=== PATIENT | male | born 1975 | race Caucasian/White ===

== ENCOUNTER 2020-01-30 12:35 | Outpatient (CLI) | payer BC, SELFPAY ==
--- NOTE | 2020-02-02 09:46 | SLEEP_ITS ---
Home Sleep Study DATE OF STUDY: 01/30/2020 ORDERING PHYSICIAN: Jeannette Reilly MD. REASON FOR THIS STUDY: Hypersomnia. HISTORY: This patient is a 44-year-old male, 5 feet 8 inches tall, weighing 180 pounds with a body mass index of 27.3. He has excessive daytime sleepiness, can fall asleep sitting down in a chair any time of day. He snores loudly and his and children tell him to turn over or wake him up to get him to stop. He is always snoring loudly and it constantly bothers other people. He constantly awakens from sleep feeling short of breath and occasionally awakens from sleep with heartburn or belching. He occasionally has trouble sleeping with a cold. He occasionally gasps for breath at night. He frequently has breathing problems witnessed by others. He occasionally sweats excessively at night. He rarely notices his heart pounding or beating irregularly at night. He constantly is falling asleep in the day, constantly falls asleep involuntarily, rarely while driving. He does not have loss of muscle tone with strong emotion. 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 He does not feel paralyzed on waking or falling asleep. He rarely has vivid dreamlike scenes upon awakening or falling asleep. He is not afraid to go to sleep. He rarely has nightmares. He does not remembers dreams. He occasionally has racing thoughts. He rarely feels sad, depressed, occasionally feels anxious. He never has muscular tension or notices parts of his body jerking. He occasionally kicks at night. He does not have crawly achy feelings in his legs, does not have leg pain at night, does not have morning jaw pain and does not grind his teeth during sleep. He occasionally is bothered by pain during the day. He is never bothered by pain at night. He occasionally wakes up feeling stiff in the morning with sore achy muscles. He frequently wakes up with pain in the neck and spine. He has headaches, stomach problems, and takes antacids regularly. He estimates that he has 4 to 5 hours of sleep on an average night. The bedtime is variable. It takes up to 30 minutes for him to fall asleep and he typically wakes 1 or 2 times at night. When this happens, he will stay in bed. Weekend schedule also varies as he may have to work on weekends. He does take naps. A short nap is not refreshing. He is tired in the morning for 2 hours or longer. He feels better in the afternoon and in the morning. MEDICAL COMORBIDITIES: Acid reflux, arthritis, anger and mood disorder with depression, history of tracheostomy. MEDICATIONS: Venlafaxine 75 mg a day for depression. HABITS: Never smoked tobacco. Caffeine, 3 to 4 cans a day. Alcohol, 2 per week. No recreational drugs. DESCRIPTION OF THE STUDY: On the [place] Sleepiness Scale, the score is 22. This was conducted as an unattended type 3 portable home sleep test using 4 channel monitoring with respiratory effort channel, snoring channel, oxygen saturation channel, and heart rate channel. This study was scored using [facility] guidelines. Duration of the study was 8 hours 48 minutes. The apnea-hypopnea index is elevated at 14. The respiratory disturbance index is 17.2. Oxygen desaturation index is 8.2, which is elevated. Lowest desaturation is 86%. He had 61 apneas. 52% of the apneas or 32 were central, 46% of the apneas or 28 were obstructive and 1 apnea or 2% was mixed. He had 62 hypopneas, 2662 flow limited breaths without snoring, 815 snoring events, 72 desaturations with 1 minute spent below 88%. Heart rate was 69 to 121. IMPRESSION: This study shows evidence of at least mild obstructive sleep apnea syndrome G47.33 with an AHI of 14, minimum saturation of 86%, frequent loud s
== END 2020-01-30 12:36 | disposition home or self-care (01) ==
LOC: ANHCSM 12:35
PROVIDERS: PCP Family Medicine; Visit Provider Family Medicine
DX: G47.33 Obstructive sleep apnea (adult) (pediatric) (principal); F32.9 Major depressive disorder, single episode, unspecified
CPT/HCPCS: 95806

== ENCOUNTER 2020-05-14 00:50 | Outpatient (CLI) | payer BC, SELFPAY ==
[2020-05-14 20:51] LABS: SARS-CoV-2 RNA PCR Negative
== END 2020-05-14 00:51 | disposition home or self-care (01) ==
LOC: ANHCOVIDDT 00:51
PROVIDERS: PCP Family Medicine; Visit Provider Orthopaedic Surgery
DX: Z01.812 Encounter for preprocedural laboratory examination (principal); Z20.828 Contact with and (suspected) exposure to other viral communicable diseases
CPT/HCPCS: 87635; C9803; U0003

== ENCOUNTER 2020-05-16 01:19 | Day surgery (SDC) | payer BC, SELFPAY ==
[2020-05-02 11:18] VITALS: BMI 27.3
--- NOTE | 2020-05-08 15:40 | PM.IMHP ---
H&P: HPI History of Present Illness Date/Time: 05/08/20 15:40 Chief complaint: right carpal and cubital tunnel syndrome Narrative: Gurinder Diamond is a 44 year old male With right elbow and wrist pain, numbness and tingling. EMG nerve conduction study shows ulnar nerve compression at the elbow and median nerve compression at the wrist. He has failed conservative treatment and presents now for operative treatment. Review of Systems Constitutional: Constitutional: Denies fever(s) Eyes: Eyes: Denies blurry vision ENT: Reports Normal hearing present Cardiovascular: Cardiovascular: Denies chest pain and Denies dyspnea Respiratory: Respiratory: Denies dyspnea and Denies wheezing Gastrointestinal: Gastrointestinal: Denies abdominal pain Genitourinary: Genitourinary: Denies urinary urgency Musculoskeletal: Musculoskeletal: Reports as per HPI and Denies numbness Integumentary/Breasts: Skin/Breast: Denies changing lesions and Denies sores Neurologic: Reports Normal hearing present, Denies behavioral changes, Denies confusion, Denies numbness and Denies convulsions Psychiatric: Psychiatric: Denies behavioral changes, Denies confusion and Denies hallucinations Endocrine: Endocrine: Denies heat intolerance Hematologic/Lymphatic: Hematologic/Lymphatic: Denies easy bleeding Allergic/Immunologic: Allergic/Immunologic: Denies wheezing PMFSH Past Medical History Medical History Carpal tunnel syndrome of right wrist Cellulitis of right elbow Gastroesophageal reflux disease Herpes zoster without complication Irritability and anger Olecranon bursitis of right elbow Right elbow pain Screening for depression Seasonal allergies Ulnar nerve injury Surgical History Surgical History History of appendectomy 1989 Status post emergency tracheotomy for assistance in breathing 1991 Family History Family History Father Patient's father is in good health Mother Family history of diabetes mellitus in first degree relative Family history of coronary artery disease Other Arthritis Hypertension Malignant neoplasm Social History Social History Smoking status: Never smoker Alcohol intake: current Drinks per week: 1 Substance use: never 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 Gender identity (if verbalized by the patient): Male Spiritual care concerns: No Meds Home Medications and Allergies Home Medications Medication Instructions Recorded Confirmed Type famotidine 40 mg tablet 40 mg PO Q12H #180 tablet 01/11/20 05/06/20 Rx venlafaxine 37.5 mg tablet 37.5 mg PO DAILY #90 tablet 03/19/20 05/06/20 Rx venlafaxine 75 mg tablet,extended 75 mg PO DAILY #90 tablet 03/19/20 05/06/20 Rx release 24 hr sumatriptan succinate 50 mg tablet See Rx Instructions PO .COMPLEX #7 05/06/20 05/06/20 Rx tablet Allergies Allergy/AdvReac Type Severity Reaction Status Date / Time esomeprazole Allergy Unknown DIARRHEA/GI Verified 05/06/20 11:17 UPSET Sulfa (Sulfonamide Allergy Unknown Hives Verified 05/06/20 11:17 Antibiotics) Exam Const: General: cooperative, healthy appearing, no acute distress, well developed and alert; No confusion Orientation/consciousness: No confusion HENMT: Head: normal to inspection, normocephalic and atraumatic Eyes: Conjunctivae: conjunctivae normal Sclera: sclerae normal Neck: Neck: supple and nontender Chest: Chest palpation & inspection: normal inspection of the chest Resp: Effort & Inspection: normal respiratory effort and no audible wheezes Cardio: Rate: regular rate Rhythm: regular rhythm : General: Yes deferred Skin: General skin exam: no rashes or lesions noted Neuro: General: No confusion Motor exam
--- NOTE | 2020-05-15 11:22 | WPDANESEPPF ---
Anes - Initial Pre Proc Eval Procedure: Operation Date: 05/16/20 07:30 Proposed Procedures p Right Carpal Tunnel Release, Right Cubital Tunnel Release - Osvaldo Still MD Date/Time: 05/15/20 11:22 Surgeon: Osvaldo Still MD Pre Op Diagnosis: right carpal and cubital tunnel syndrome Patient Data Age: 44 Gender: M Height: 1.75 m Weight: 83.91 kg Allergies Allergy/AdvReac Type Severity Reaction Status Date / Time esomeprazole Allergy Unknown DIARRHEA/GI Verified 05/06/20 11:17 UPSET Sulfa (Sulfonamide Allergy Unknown Hives Verified 05/06/20 11:17 Antibiotics) Home Medications Medication Instructions Recorded Confirmed Type famotidine 40 mg tablet 40 mg PO Q12H #180 tablet 01/11/20 05/06/20 Rx venlafaxine 37.5 mg tablet 37.5 mg PO DAILY #90 tablet 03/19/20 05/06/20 Rx sumatriptan succinate 50 mg tablet See Rx Instructions PO .COMPLEX #7 05/06/20 05/06/20 Rx tablet venlafaxine 75 mg tablet,extended 75 mg PO DAILY #90 tablet 05/13/20 Rx release 24 hr PMFSH Past Medical History Medical History (Updated 05/15/20 @ 11:24 by Prince Garay MD) Carpal tunnel syndrome of right wrist Cellulitis of right elbow Cubital tunnel syndrome on right Gastroesophageal reflux disease Herpes zoster without complication Irritability and anger Olecranon bursitis of right elbow ADAM (obstructive sleep apnea) Overweight (BMI 25.0-29.9) Right elbow pain Screening for depression Seasonal allergies Ulnar nerve injury Surgical History Surgical History History of appendectomy 1989 Status post emergency tracheotomy for assistance in breathing 1991 Family History Family History Father Patient's father is in good health Mother Family history of diabetes mellitus in first degree relative Family history of coronary artery disease Other Arthritis Hypertension Malignant neoplasm Social History Social History Smoking status: Never smoker Alcohol intake: current Drinks per week: 1 Substance use: never 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 Questions were solicited and answers provided to the satisfaction of the patient/family/POA.
[2020-05-16] VITALS (8 sets, daily range): BP systolic 113–134; BP diastolic 80–90; PULSE 75–97; RESP 10–16; TEMP 36.3–36.8; O2SAT 93–100
[2020-05-16] MEDS: ACETAMINOPHEN 500 MG TABLET 1000 MG PO (06:36)
[2020-05-16] MEDS: KETOROLAC 15 MG/ML VIAL (*BKC) IV PUSH (06:36)
[2020-05-16] MEDS: LACTATED RINGERS 1,000 ML 30 ML IV CONT (06:37)
--- NOTE | 2020-05-16 06:47 | WPDANESEPPF ---
Anes - Initial Pre Proc Eval Procedure: Operation Date: 05/16/20 07:30 Proposed Procedures p Right Carpal Tunnel Release, Right Cubital Tunnel Release - Osvaldo Still MD Date/Time: 05/16/20 06:47 Surgeon: Osvalod Still MD Pre Op Diagnosis: right carpal and cubital tunnel syndrome Patient Data Age: 44 Gender: M Height: 5 ft 9 in Weight: 83.91 kg Allergies Allergy/AdvReac Type Severity Reaction Status Date / Time esomeprazole Allergy Unknown DIARRHEA/GI Verified 05/06/20 11:17 UPSET Sulfa (Sulfonamide Allergy Unknown Hives Verified 05/06/20 11:17 Antibiotics) Home Medications Medication Instructions Recorded Confirmed Type famotidine 40 mg tablet 40 mg PO Q12H #180 tablet 01/11/20 05/06/20 Rx venlafaxine 37.5 mg tablet 37.5 mg PO DAILY #90 tablet 03/19/20 05/06/20 Rx sumatriptan succinate 50 mg tablet See Rx Instructions PO .COMPLEX #7 05/06/20 05/06/20 Rx tablet venlafaxine 75 mg tablet,extended 75 mg PO DAILY #90 tablet 05/13/20 Rx release 24 hr Patient hx anesthesia problems: none Family hx anesthesia problems: none PMFSH Past Medical History Medical History Carpal tunnel syndrome of right wrist Cellulitis of right elbow Cubital tunnel syndrome on right Gastroesophageal reflux disease Herpes zoster without complication Irritability and anger Olecranon bursitis of right elbow ADAM (obstructive sleep apnea) Overweight (BMI 25.0-29.9) Right elbow pain Screening for depression Seasonal allergies Ulnar nerve injury Surgical History Surgical History History of appendectomy 1989 Status post emergency tracheotomy for assistance in breathing 1991 Family History Family History Father Patient's father is in good health Mother Family history of diabetes mellitus in first degree relative Family history of coronary artery disease Other Arthritis Hypertension Malignant neoplasm Social History Social History Smoking status: Never smoker Alcohol intake: current Drinks per week: 1 Substance use: never 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 Questions were solicited and answers provided to the satisfaction of the patient/family/POA.
--- NOTE | 2020-05-16 07:00 | WPDHPUPDATE1 ---
History and Physical Update Update Date/Time: 05/16/20 07:00 History and Physical has been reviewed, including an updated exam of the patient. There are NO changes in the patient's condition. Covid test negative. Risks, benefits, and alternatives have been discussed and questions answered. Patient agrees to proceed with procedure.
[2020-05-16] MEDS: ceFAZolin 2 GM/D5W 50 ML 2 GM/50 ML BAG IVPB (07:23)
[2020-05-16] MEDS: BUPIVACAINE HCL 0.5% PF 30 ML VIAL INFILTRATE (07:48)
--- NOTE | 2020-05-16 08:35 | P.OP_ITS ---
Procedure Note - Detailed Date of procedure: 05/16/20 Pre-op diagnosis: right carpal and cubital tunnel syndrome Post-op diagnosis: same Procedure performed: Right cubital tunnel release, right carpal tunnel release Description of procedure: Surgeon: Cheko Assist: Waxing Machine Operator Complications: None EBL: Minimal Operative Indications: The patient has history, exam findings, and electrodiagnostic findings consistent with cubital tunnel syndrome and carpal tunnel syndrome. Conservative treatment with bracing/ splinting, activity modifications, medication, ergonomics, injections has failed. Symptoms are daily and affect ability to use hand. The patient desires operative treatment. Procedure: After informed consent was given, the operative extremity was marked in the preoperative holding area. Intravenous antibiotics were given. The patient was taken to the operating room and underwent general anesthesia by the anesthesia team. A time-out was performed confirming patient, procedure, and operative site. Local infiltrate at the carpal tunnel and cubital tunnel was done with 0.5% marcaine. Prepping and draping was done using chloraprep skin solution with usual surgical sterile technique. Anatomic landmarks marked on skin. Hand was exsanguinated and arm tourniquet inflated to 225mmHg. right elbow cubital tunnel was addressed 1st. Incision with 15 blade knife made over the cubital tunnel. Careful dissection carried down through the subcutaneous tissue. Hemostasis controlled with electrocautery. Fascia overlying the cubital tunnel was then incised in line with the skin incision. The ulnar nerve was identified deep to the fascia and was protected. The fascia was then released proximally. There was noted to be tight fascia attached to the medial humerus with impingement on the nerve. This fascia was carefully released proximally into the muscle. Under direct visualization, the fascia was then released distally to expose the ulnar nerve. Released distally was taken to the ulnar nerve branch. Wound was thoroughly irrigated antibiotic solution. Subcutaneous tissue closed with 3 0 Monocryl interrupted suture and skin approximated with running 3 0 Monocryl subcuticular stitch. Sterile dressing applied. Right carpal tunnel then addressed. Incision was made with #15 blade knife in skin crease on volar palm. Hemostasis was achieved with electrocautery. Careful dissection was carried down to the transverse carpal ligament. Retractors were placed. Ligament overlying median nerve was incised in line with skin incision using kenaitze blade. Proximal and distal release was done wi th metzenbaum scissors under direct visualization. Mosquito clamp was placed deep to ligament to protect nerve during release. The nerve was inspected and noted to be intact with mild flattening. Tendons had good excursion. The tourniquet was then released and pressure held. Bleeding points were coagulated with bovie cautery. The wound was thoroughly irrigated with antibiotic solution. The skin was closed with 4-0 nylon interrupted suture. A sterile dressing was applied. Good capillary refill in the fingers and thumb was noted. The patient was transported to the recovery room in stable condition. All sponge, needle, instrument counts were correct at the end of the case. Implants: none Anesthesia: GLMA Surgeon: Osvaldo Still MD Angiography Technologist: 1st operator assistant i cementing Estimated blood loss (mL): 2 Tourniquet time (min): 25 Drains: No Packing: No Pathology: none sent Complications: None Condition: stable Disposition: PACU
[2020-05-16] MEDS: IBUPROFEN 400 MG TABLET 800 MG PO (09:37)
== END 2020-05-16 10:24 | disposition home or self-care (01) ==
PROVIDERS: Visit Provider Orthopaedic Surgery
PROC: (CPT 64721; principal; 2020-05-16 07:30)
DX: G56.01 Carpal tunnel syndrome, right upper limb (principal); G56.21 Lesion of ulnar nerve, right upper limb; K21.9 Gastro-esophageal reflux disease without esophagitis; G47.33 Obstructive sleep apnea (adult) (pediatric)
CPT/HCPCS: 64721; 64718; A9270; J0690; J1100; J1885; J2250; J2405; J2704; J3010; J7120

== ENCOUNTER 2021-05-08 08:54 | Observation (INO) | payer BC, SELFPAY ==
[2021-05-08] VITALS (13 sets, daily range): BP systolic 111–134; BP diastolic 70–97; PULSE 67–98; RESP 14–18; TEMP 35.9–36.8; O2SAT 93–99
--- NOTE | ~2021-05-08 | XR_ITS ---
EXAMINATION: XR abdomen/kub 1V EXAM DATE: 05/08/2021 11:11 INDICATION: Right stone TECHNIQUE: Frontal projection of the upper abdomen, frontal projection lower abdomen/pelvis for inter pretation. Correlation is made to CT same date. FINDINGS: 5 mm right UPJ stone identified, indicated. Can't identify the smaller left nephrolithiasi s. Nonobstructive bowel gas pattern. There are no osseous abnormalities identified. IMPRESSION: Right UPJ stone identified. Reviewed, dictated and finalized at location B. IMPRESSION: Right UPJ stone identified.
--- NOTE | ~2021-05-08 | XR_ITS ---
XR abdomen/kub 1V 05/09/2021 17:49 Indication: Abdomen pain Procedure: KUB Comparison: 05/08/2021 Findings: The UPJ stones on the right seen on prior CT are not visualized by x-ray. Bowel gas pattern is nonobstructive. There is a punctate nonobstructing left renal stone. No acute osseous abnormality . Impression: 1: Left nephrolithiasis. Reviewed, dictated and finalized at location A. Impression: 1: Left nephrolithiasis.
--- NOTE | ~2021-05-08 | CT_ITS ---
EXAMINATION: CT abdomen pelvis wo con EXAM DATE: 05/08/2021 09:27 INDICATION: Hematuria. Painful urination. TECHNIQUE: Spiral CT of the abdomen and pelvis was performed without contrast. Axial, coronal and sag ittal images were reviewed. The dose-length product (DLP) for this examination was 453.72 mGy-cm. T he exposure was tailored according to patient size (auto mA exposure control), and iterative reconstr uction (ASIR) was used as additional dose reduction technique. There is no prior study for compariso n. FINDINGS: There is a 5 mm on the right ureteropelvic junction. No hydronephrosis at present. No other right nephrolithiasis. There are regions of right renal cortical scarring. There is 2 mm left mid ca lyceal stone. The prostate is unremarkable. The bladder is unremarkable. The liver, spleen, adrena l glands and pancreas are unremarkable. Gallbladder is unremarkable. No biliary obstruction. There is no retroperitoneal or pelvic lymphadenopathy. There are no findings to suggest appendicitis. The stomach and small bowel are unremarkable. There is expected amount of colonic stool. No free intraperitoneal gas. The heart is normal in size. T here are no pericardial or pleural effusions. The lung bases are unremarkable. There are no osteobl astic or osteolytic lesions identified. IMPRESSION: 1. Right UPJ 5 mm stone. No hydronephrosis at present. 2. Nonobstructing small left calyceal stone. Reviewed, dictated and finalized at location B.
--- NOTE | ~2021-05-08 | CT_ITS ---
EXAMINATION: CT abdomen wo con DATE: 05/09/2021 17:40 INDICATION: Abdomen pain TECHNIQUE: Computed tomography (CT) of the abdomen and pelvis was performed without intravenous contr ast. The dose-length product was 345.57 mGy-cm. Automated exposure control and iterative reconstructi on technique were employed. COMPARISON: CT dated 05/08/2021 FINDINGS: There is gynecomastia. Left lower lobe airspace consolidation. Patchy bibasilar groundglass infiltrates. No significant pleural or pericardial effusion. Heart size is normal. Moderate size hia genoveva hernia. There are at least 2 stones at the right UPJ with mild hydronephrosis. There is right per inephric stranding, likely from pyelosinus extravasation. There is a small 2-3 mm nonobstructing left renal stone. The liver, spleen, pancreas, adrenal glands are unremarkable. Nonobstructive bowel gas pattern. No fr ee air or free fluid. IMPRESSION: 1. Right UPJ stones measuring up to 6 mm with mild hydronephrosis and perinephric stranding, suspicio us for pyelosinus extravasation. 2: Bibasilar groundglass opacities and airspace consolidation, suspicious for pneumonia. 3: Nonobstructing left nephrolithiasis. Reviewed, dictated and finalized at location A. IMPRESSION: 1. Right UPJ stones measuring up to 6 mm with mild hydronephrosis and perinephr ic stranding, suspicious for pyelosinus extravasation. 2: Bibasilar groundglass opacities and airspace consolidation, suspicious for p neumonia. 3: Nonobstructing left nephrolithiasis.
--- NOTE | ~2021-05-08 | CT_ITS ---
EXAMINATION: CT pelvis wo con DATE: 05/09/2021 17:55 INDICATION: Right groin pain TECHNIQUE: Computed tomography (CT) of the pelvis was performed without intravenous contrast. The dos e-length product was 241.71 mGy-cm. Automated exposure control and iterative reconstruction technique were employed. COMPARISON: CT dated 05/08/2021 FINDINGS: Nonobstructive bowel gas pattern. No evidence for inguinal hernia. No significant vascular abnormality. No lymphadenopathy. No free air or free fluid. No acute bone or joint abnormality. IMPRESSION: 1. No significant abnormality of the pelvis. No findings to account for patient's symptoms. Reviewed, dictated and finalized at location A. IMPRESSION: 1. No significant abnormality of the pelvis. No findings to account for patient 's symptoms.
[2021-05-08 09:31] LABS: Basophils Absolute Auto 0.1 K/mm3 (0.0-0.1); Basophils Percent Auto 0.7 % (0.2-1.2); Eosinophils Absolute Auto 0.1 K/mm3 (0-0.3); Eosinophils Percent Auto 1.9 % (0-4.4); Hematocrit 43.8 % (42.0-52.0); Hemoglobin 14.7 g/dL (14.0-18.0); Immature Granulocyte Absolute 0.02 K/mm3 (0.00-0.031); Immature Granulocyte Percent A 0.3 % (0-0.5); Lymphocytes Absolute Auto 1.71 K/mm3 (0.9-3.2); Lymphocytes Percent Auto 25.6 % (18.3-44.2); Mean Corpuscular HGB Conc 33.6 g/dl (32-36); Mean Corpuscular Hemoglobin 30.5 pg (26-34); Mean Corpuscular Volume 90.9 fl (80-100); Mean Platelet Volume 9.2 fl (7.4-10.4); Monocytes Absolute Auto 0.6 K/mm3 (0.1-0.6); Monocytes Percent Auto 8.4 % (2.6-8.5); Neutrophils Absolute Auto 4.2 K/mm3 (1.3-6.7); Neutrophils Percent Auto 63.1 % (45.5-73.1); Platelet Count Result 379 k/mm3 (150-375); Red Blood Count 4.82 M/mm3 (4.6-6.20); Red Cell Distribution Width 12.3 % (11.5-14.5); White Blood Count 6.7 K/mm3 (4.5-10.0)
[2021-05-08 09:43] LABS: Add Urine Microscopic? YES; Appearance Urine Cloudy (Clear); Bilirubin Urine Negative (Negative); Blood Urine 3+ (Negative); Color Urine Straw (Yellow); Glucose Urine UA Negative (Negative); Ketones Urine Negative (Negative); Leukocyte Esterase Ur Negative LEU/UL (Negative); Nitrate Urine Negative (Negative); Protein Urine Negative (Negative); RBC Urine >75 /hpf (0-2); Specific Grav Ur 1.013 (1.001-1.035); Urobilinogen Urine Negative mg/dL (<2.0); WBC Urine 0-3 /hpf
[2021-05-08 09:49] LABS: Anion Gap 10 mmol/L (8-16); Blood Urea Nitrogen 17 mg/dL (9-20); Calcium 9.7 mg/dL (8.4-10.2); Carbon Dioxide 23 mmol/L (22-30); Chloride 105 mmol/L (98-107); Estimated CRCL calculation 111 ml/min; Estimated Glomerular Filt Rate > 60; Glucose 91 mg/dL (65-110); Potassium 4.5 mmol/L (3.4-5.0); Sodium 138 mmol/L (137-145)
[2021-05-08] MEDS: SODIUM CHLORIDE 0.9% IV 1,000 ML 999 ML IV CONT (10:24)
[2021-05-08] MEDS: TAMSULOSIN HCL 0.4 MG CAPSULE PO (10:24)
--- NOTE | 2021-05-08 11:07 | PC.NURSE ---
Pt to xray.
--- NOTE | 2021-05-08 12:32 | PC.NURSE ---
Pt now c/o pain and nausea.
[2021-05-08] MEDS: ONDANSETRON INJ 4 MG/2 ML VIAL IV PUSH ×2 (12:37→19:47)
[2021-05-08] MEDS: HYDROmorphone HCL INJ (*CRX) 1 MG/ML SYR 0.5 MG IV PUSH ×3 (12:38→19:01)
--- NOTE | 2021-05-08 14:06 | ED.GENADULT ---
HPI - General Adult General Chief complaint: Urogenital-Male Stated complaint: HEMATURIA [id number] Time Seen by Provider: 05/08/21 09:12 Source: patient Mode of arrival: ambulatory Limitations: no limitations History of Present Illness HPI narrative: Patient is a 45-year-old male with chief complaint of intermittent hematuria over the past 2 weeks. Patient reports that beginning a few days ago he noticed having pain with urination as well. Patient denies penile discharge, sores or ulcerations. He denies any penile trauma. Patient denies any testicular pain. Patient denies noting blood clots in his urine. Patient denies history of recurrent UTIs or kidney stones. He denies fever, chills, nausea, vomiting, diarrhea, or flank pain. Patient denies pain at this time. Patient denies nausea or vomiting presently. Related Data Home Medications Medication Instructions Recorded Confirmed venlafaxine mg PO 05/08/21 Allergies Allergy/AdvReac Type Severity Reaction Status Date / Time esomeprazole Allergy Unknown DIARRHEA/GI Verified 05/08/21 09:27 UPSET Sulfa (Sulfonamide Allergy Unknown Hives Verified 05/08/21 09:27 Antibiotics) Review of Systems Review of Systems: CONSTITUTIONAL: Denies fever, chills, or sweats. EYES: Denies visual changes, redness, or discharge. ENT: Denies rhinorrhea, congestion, sore throat, or otalgia. CARDIOVASCULAR: Denies chest pain, palpitations, or edema. RESPIRATORY: Denies cough or dyspnea. GASTROINTESTINAL: Denies abdominal pain, nausea, vomiting, or diarrhea. GENITOURINARY: Reports hematuria denies dysuria SKIN: Denies rash or itching. MUSCULOSKELETAL: Denies back pain, joint pain, or myalgia. NEUROLOGIC: Denies headache, numbness, dizziness, or weakness. PSYCHIATRIC: Denies anxiety or depression. [facility] Past Medical History Medical History Carpal tunnel syndrome of right wrist Cellulitis of right elbow Cubital tunnel syndrome on right Gastroesophageal reflux disease Herpes zoster without complication Irritability and anger Olecranon bursitis of right elbow ADAM (obstructive sleep apnea) Overweight (BMI 25.0-29.9) Right elbow pain Screening for depression Seasonal allergies Ulnar nerve injury Surgical History Surgical History History of appendectomy 1989 Status post emergency tracheotomy for assistance in breathing 1991 Family History Family History Father Patient's father is in good health Mother Family history of diabetes mellitus in first degree relative Family history of coronary artery disease Other Arthritis Hypertension Malignant neoplasm Social History Social History Alcohol intake: current Drinks per week: 1 Alcohol use details: Occasional Substance use: never 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 HEAD: Normocephalic, atraumatic. EYES: PERRLA and EOMI. CHEST: Clear to auscultation. No respiratory distress. No wheezes rales or rhonchi HEART: Regular rate and rhythm. No murmur heard. Normal peripheral pulses. ABDOMEN: Soft, mild discomfort with palpation over bladder, nondistended, normal active bowel sounds. No CVA tenderness. EXTREMITIES: Normal range of motion. No edema. SKIN: Warm, dry, no rash. NEURO: No focal deficits. Alert and oriented x3. PSYCH: Normal mood and affect. Course Vital Signs Vital signs: Vital Signs Pulse Rate 81 05/08/21 09:14 Respiratory Rate 16 05/08/21 09:14 Blood Pressure 132/97 H 05/08/21 09:14 Pulse Oximetry 99 05/08/21 09:14 Temperature 98.2 F 05/08/21 09:22 Pulse Rate
--- NOTE | 2021-05-08 16:44 | PM.IMHP ---
H&P: HPI History of Present Illness Date/Time: 05/08/21 16:44 No prior history of urolithiasis, present to ER with 2 day history of hematuria and progressive right flank pain. CT imaging reveals 5mm right UPJ stone. Denies fever/chills but does report n/v with irritable voiding. Chief Complaint: Right flank pain Review of Systems Cardiovascular: Cardiovascular: Denies chest pain, Denies lightheadedness, Denies palpitations and Denies dyspnea Respiratory: Respiratory: Denies dyspnea Gastrointestinal: Gastrointestinal: Denies diarrhea, Denies nausea and Denies vomiting Genitourinary: Genitourinary: Denies hematuria and Denies dysuria Endocrine: Endocrine: Denies palpitations PMFSH Past Medical History Medical History Carpal tunnel syndrome of right wrist Cellulitis of right elbow Cubital tunnel syndrome on right Gastroesophageal reflux disease Herpes zoster without complication Irritability and anger Olecranon bursitis of right elbow ADAM (obstructive sleep apnea) Overweight (BMI 25.0-29.9) Right elbow pain Screening for depression Seasonal allergies Ulnar nerve injury Surgical History Surgical History History of appendectomy 1989 Status post emergency tracheotomy for assistance in breathing 1991 Family History Family History Father Patient's father is in good health Mother Family history of diabetes mellitus in first degree relative Family history of coronary artery disease Other Arthritis Hypertension Malignant neoplasm Social History Social History Alcohol intake: current Drinks per week: 1 Alcohol use details: Occasional Substance use: never 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 Gender identity (if verbalized by the patient): Male Spiritual care concerns: No Meds Home Medications and Allergies Home Medications Medication Instructions Recorded Confirmed Type famotidine 40 mg tablet See Rx Instructions .ROUTE 11/29/20 Rx .COMPLEX #180 tablet diclofenac potassium 50 mg tablet 50 mg PO BID #60 tablet 04/07/21 Rx hydrocodone-acetaminophen 1 tablet PO Q8H PRN #10 tablet 05/08/21 Rx ondansetron 4 mg PO Q8H PRN #14 tablet 05/08/21 Rx tamsulosin [Flomax] 0.4 mg PO DAILY #7 cap 05/08/21 Rx venlafaxine mg PO 05/08/21 History Allergies Allergy/AdvReac Type Severity Reaction Status Date / Time esomeprazole Allergy Unknown DIARRHEA/GI Verified 05/08/21 09:27 UPSET Sulfa (Sulfonamide Allergy Unknown Hives Verified 05/08/21 09:27 Antibiotics) Vital Signs Vital Signs - 24 hr 05/08/21 09:14 05/08/21 09:22 05/08/21 12:50 Temperature 98.2 F Pulse Rate 81 98 Respiratory Rate 16 15 Blood Pressure 132/97 H 132/94 H Pulse Oximetry 99 99 05/08/21 13:39 05/08/21 14:30 05/08/21 15:08 Temperature Pulse Rate 70 67 70 Respiratory Rate 18 14 18 Blood Pressure 127/94 H 127/88 133/90 Pulse Oximetry 95 93 93 05/08/21 15:47 05/08/21 16:44 Temperature Pulse Rate 70 81 Respiratory Rate 16 14 Blood Pressure 126/91 H 111/86 Pulse Oximetry 93 95 Exam Const: General: no acute distress Resp: Effort & Inspection: normal respiratory effort GI: Inspection: non-distended GI Palp: No abdominal tenderness and No Guarding due to palpation present (GI) Auscultation: normal bowel sounds H&P: Results Labs Labs: Short CBC 05/08/21 Range/Units 09:22 WBC 6.7 (4.5-10.0) K/mm3 Hgb 14.7 (14.0-18.0) g/dL Hct 43.8 (42.0-52.0) % Plt Count 379 H (150-375) k/mm3 BMP 05/08/21 09:22 Sodium 138 Potassium 4.5 Chloride 105 Carbon Dioxide 23 BUN 17 Creatinine 0.70 Glucose 91 Calcium 9.7 Urine 05/08/21 Range/Units 09:22 Urine Color Straw (Yellow) Urine Ap
--- NOTE | 2021-05-08 18:14 | ADMGEN ---
This patient, Gurinder Diamond, was admitted to Medical Room 260-. Patient/family oriented to hospital policies and general routines including ID bracelet, bed and alarms, visiting hours, pain management, procedures, bathroom and other care routines, personal items, smoking policy, room service/diet, and visiting hours. Information on how to activate the Rapid Response Team has been discussed. Patient/Family are encouraged to report perceived risks to care and to ask questions if they do not understand what they are told or what they should do.
[2021-05-09] VITALS (15 sets, daily range): BP systolic 104–138; BP diastolic 72–96; PULSE 58–92; RESP 10–18; TEMP 35.7–36.6; O2SAT 90–98
[2021-05-09] MEDS: HYDROmorphone HCL INJ (*CRX) 1 MG/ML SYR 0.5 MG IV PUSH ×6 (02:19→15:59)
[2021-05-09] MEDS: ONDANSETRON INJ 4 MG/2 ML VIAL IV PUSH ×3 (04:26→18:30)
[2021-05-09 08:01] LABS: Prothrombin Time 12.8 Seconds (11.1-14.7)
[2021-05-09 08:02] LABS: Partial Thromboplastin Time 25.8 SECONDS (22.3-36.8)
--- NOTE | 2021-05-09 12:40 | WPDHPUPDATE1 ---
History and Physical Update Update Date/Time: 05/09/21 12:40 History and Physical has been reviewed, including an updated exam of the patient. There are NO changes in the patient's condition. Risks, benefits, and alternatives have been discussed and questions answered. Patient agrees to proceed with procedure. Proceed with right ureteral eswl
--- NOTE | 2021-05-09 12:48 | PC.NURSE ---
To OR per frantz, IV saline locked. Report given to VICENTE Cook.
--- NOTE | 2021-05-09 13:32 | WPDANESEPPF ---
Anes - Initial Pre Proc Eval Procedure: Operation Date: 05/09/21 14:45 Proposed Procedures p Right Extracorporeal Shock Wave Lithotripsy - Cedrick Hanna MD Date/Time: 05/09/21 13:32 Surgeon: Bart Davis MD Pre Op Diagnosis: RIght UPJ Stone Patient Data Age: 45 Gender: M Height: 1.73 m Weight: 85 kg Last Vital Signs Temp 36.3 C L 05/09/21 13:16 Pulse 76 05/09/21 13:16 Resp 18 05/09/21 13:16 BP 124/82 05/09/21 13:16 Pulse Ox 97 05/09/21 13:16 Allergies Allergy/AdvReac Type Severity Reaction Status Date / Time esomeprazole Allergy Unknown DIARRHEA/GI Verified 05/08/21 18:08 UPSET Sulfa (Sulfonamide Allergy Unknown Hives Verified 05/08/21 18:08 Antibiotics) Home Medications Medication Instructions Recorded Confirmed Type diclofenac potassium 50 mg PO BID PRN 05/08/21 05/08/21 History famotidine 40 mg PO BID 05/08/21 05/08/21 History venlafaxine 75 mg PO DAILY 05/08/21 05/08/21 History Laboratory Tests 05/09/21 07:24 PT 12.8 Seconds Seconds (11.1-14.7) INR 1.0 APTT 25.8 SECONDS SECONDS (22.3-36.8) Patient hx anesthesia problems: none Family hx anesthesia problems: none Results Review: All pre-operative results and documents have been reviewed as part of the pre-operative evaluation. [facility] Past Medical History Medical History Carpal tunnel syndrome of right wrist Cellulitis of right elbow Cubital tunnel syndrome on right Gastroesophageal reflux disease Herpes zoster without complication Irritability and anger Olecranon bursitis of right elbow ADAM (obstructive sleep apnea) Overweight (BMI 25.0-29.9) Right elbow pain Screening for depression Seasonal allergies Ulnar nerve injury Surgical History Surgical History History of appendectomy 1989 Status post emergency tracheotomy for assistance in breathing 1991 Family History Family History (Updated 05/08/21 @ 18:25 by Irene P. 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 Informed Consent: The patient's anesthetic plan and its attendant risks and benefits were discussed with the patient/family/POA. Questions were solicited and answers provided to the satisfaction of the patient/family/POA.
[2021-05-09] MEDS: LACTATED RINGERS 1,000 ML 30 ML IV CONT (13:38)
--- NOTE | 2021-05-09 14:38 | P.OP_ITS ---
Procedure Note - Detailed Date of Procedure 05/09/21 Pre-op Diagnosis RIght UPJ Stone Post-op Diagnosis same Procedure Performed ESWL right proximal ureteral calculus Surgeon Cedrick Hanna MD Anesthesia general Description of Procedure Patient is taken the operative suite correctly identified. Once anesthesia was obtained the stone was localized in both planes. Three thousand shocks were given the stone. There appeared to be good fragmentation. He was taken recovery room stable condition. If he does well be discharged home and follow- up in 7-10 days with KUB. Urine Output 200 Drains No Packing No Pathology none sent Complications No immediate complications Condition stable Disposition PACU
[2021-05-09] MEDS: fentaNYL CITRATE INJ (*CRX) 100 MCG/2 ML VIAL 25 MCG IV PUSH ×4 (15:12→15:24)
--- NOTE | 2021-05-09 17:01 | PC.NURSE ---
Returned from OR per stretcher. Report received from VICENTE Hanna.
[2021-05-09] MEDS: MORPHINE SULFATE (*CRX) 2 MG/ML INJ IV PUSH (17:29)
--- NOTE | 2021-05-09 17:31 | PC.NURSE ---
Patient to XR/CT per wheelchair.
--- NOTE | 2021-05-09 17:34 | PC.NURSE ---
Patient returned from OR. Upon entering room, patient is crying in pain. When asked to rate pain, patient states a 12, I need pain medicine right now. He points to his R groin/abdominal area. Called and spoke to Dr. Hanna. I received orders for pain medications and stat KUB/CT w/o.
--- NOTE | 2021-06-17 16:13 | PM.DS ---
DS: Admitting Diagnosis Discharge Date 05/09/21 Admitting Diagnosis Right Renal stone DS: Discharge Diagnosis Discharge Diagnosis (1) Kidney stone on right side: Code(s): N20.0 - Calculus of kidney Status: Acute DS: Summary Hospital Course Hospital Course: See note below. Time Spent with Patient Time attestation: Total time spent providing and/or coordinating discharge services:30 minutes Patient underwent an ESWL right proximal ureteral calculus on 05/09/[address] Hanna. He tolerated the procedure well, was sent to recovery in stable condition and to the floor for further observation. He was then discharged home after pain was well controlled. He can resume a normal diet, activity without restriction. He will continue home medications and follow up in the office in two weeks after a KUB is done. Exam Resp: Effort & Inspection: normal respiratory effort Cardio: Rate: regular rate GI: GI Palp: Yes Soft to palpation and No Tenderness to palpation present (GI) : General: Yes no CVA tenderness Extrem: General: no edema Discharge Plan Discharge Attending physician on discharge: Bart Davis Consulting providers: Maureen Ibrahim ; Saud Chamberlain ; Donny Spears ; Cedrick Hanna Discharging Clinician: Bart Davis Patient Disposition: Home, Self-Care Activity: as tolerated Diet: as tolerated Discharge Instructions: 1) Activity: no driving or important decisions x24 hours. 2) Diet: resume your normal, pre-admission diet. 3) Follow-up: 1-2 weeks / call for appointment ([phone]). Patient Instructions: Antibiotic Form Stand Alone Forms: General Discharge Information Follow-up/Referrals: Bart Davis MD [Physician] - Discharge Medications: New hydrocodone-acetaminophen 5-325 mg tablet 1 - 2 tablet PO Q6H PRN (Reason: pain) Qty: 20 RF: 0 cephalexin 500 mg capsule 500 mg PO Q8H Qty: 9 RF: 0 Continued venlafaxine 75 mg capsule,extended release 24hr 75 mg PO DAILY RF: 0 famotidine 40 mg tablet 40 mg PO BID RF: 0 diclofenac potassium 50 mg tablet 50 mg PO BID PRN (Reason: Migraine Headache) RF: 0 Date of admission: 05/08/21 15:30 Primary Care Provider: Mesfin Vanegas Admitting Provider: Bart Davis Attending physician on admission: Vinnie Herrera Condition: Improved
== END 2021-05-09 21:00 | disposition home or self-care (01) ==
LOC: ANHED 15:30 → ANH2MED 16:46
PROVIDERS: Urology; Admitting Provider Urology; Emergency Provider Emergency Medicine; PCP Family Medicine; Visit Provider Urology
PROC: (CPT 50590; principal; 2021-05-09 14:45)
DX: N20.0 Calculus of kidney (principal); R10.9 Unspecified abdominal pain
CPT/HCPCS: 50590; 36415; 72192; 74018; 74150; 74176; 80048; 81001; 85025; 85610; 85730; 96361; 96365; 96375; 96376; 99285; A9270; G0378; J0131; J0690; J1100; J1170; J2250; J2270; J2405; J2704; J3010; J7030; J7120

== ENCOUNTER 2022-06-12 12:20 | Outpatient (CLI) | payer BC, SELFPAY ==
--- NOTE | ~2022-06-12 | CT_ITS ---
EXAMINATION: CT abdomen pelvis wo con DATE: 06/12/2022 12:39 INDICATION: Kidney stones TECHNIQUE: Computed tomography (CT) of the abdomen and pelvis was performed without intravenous contr ast. Automated exposure control and iterative reconstruction technique were employed. Exam dose: 194 .77 mGy-cm total exam DLP. COMPARISON: 05/09/[address] pelvis FINDINGS: The lung bases are clear of infiltrate or consolidation. Normal heart size. There is trace pericardial fluid. No pericardial effusion. No hepatic, splenic, pancreatic, and adrenal space-occupying mass lesion is evident on this limited n oncontrast examination. The gallbladder is relatively contracted. No pericholecystic fluid or fat str anding. No bile duct or pancreatic duct dilatation. There is mild scarring of the kidneys. No urinary tract calculus or hydroureteronephrosis. The urinar y bladder is unremarkable. Mild prostate gland enlargement. Normal caliber of the abdominal aorta. No intraperitoneal or retroperitoneal or pelvic mass lesion or adenopathy or ascites. Small sliding hiatal hernia. The appendix is not visualized. There is no evidence of appendicitis. No bowel obstruction, bowel wall thickening, pneumatosis or intraperitoneal free air is detected. Included skeletal structures are unremarkable. No suspicious osteolytic or osteoblastic lesions. IMPRESSION: No urinary tract calculi or hydroureteronephrosis Small sliding hiatal hernia Reviewed, dictated and finalized at Location A. Reviewed, dictated and finalized at location B. [facility]
[2022-06-12 13:03] LABS: Alanine Aminotransferase 25 U/L (6-50); Albumin Level 4.8 g/dL (3.5-5.1); Alkaline Phosphatase 85 U/L (38-126); Anion Gap 10 mmol/L (8-16); Aspartate Amino Transferase 36 U/L (17-59); Bilirubin,Total 0.7 mg/dL (0.2-1.3); Blood Urea Nitrogen 12 mg/dL (9-20); Calcium 9.3 mg/dL (8.4-10.2); Carbon Dioxide 27 mmol/L (22-30); Chloride 104 mmol/L (98-107); Estimated Glomerular Filt Rate > 60; Glucose 94 mg/dL (65-110); Potassium 4.4 mmol/L (3.4-5.0); Sodium 141 mmol/L (137-145)
[2022-06-12 14:20] LABS: Basophils Absolute Auto 0.1 K/mm3 (0.0-0.1); Basophils Percent Auto 0.7 % (0.2-1.2); Eosinophils Absolute Auto 0.2 K/mm3 (0-0.3); Eosinophils Percent Auto 2.8 % (0-4.4); Hematocrit 44.8 % (42.0-52.0); Hemoglobin 14.6 g/dL (14.0-18.0); Immature Granulocyte Absolute 0.01 K/mm3 (0.00-0.031); Immature Granulocyte Percent A 0.1 % (0-0.5); Lymphocytes Absolute Auto 1.92 K/mm3 (0.9-3.2); Lymphocytes Percent Auto 27.1 % (18.3-44.2); Mean Corpuscular HGB Conc 32.6 g/dl (32-36); Mean Corpuscular Hemoglobin 29.7 pg (26-34); Mean Corpuscular Volume 91.2 fl (80-100); Mean Platelet Volume 9.6 fl (7.4-10.4); Monocytes Absolute Auto 0.6 K/mm3 (0.1-0.6); Monocytes Percent Auto 8.1 % (2.6-8.5); Neutrophils Absolute Auto 4.3 K/mm3 (1.3-6.7); Neutrophils Percent Auto 61.2 % (45.5-73.1); Platelet Count Result 420 k/mm3 (150-375); Red Blood Count 4.91 M/mm3 (4.6-6.20); Red Cell Distribution Width 12.6 % (11.5-14.5); White Blood Count 7.1 K/mm3 (4.5-10.0)
== END 2022-06-12 12:21 | disposition home or self-care (01) ==
LOC: ANHIMG 12:23
PROVIDERS: PCP Nurse Practitioner Family; Visit Provider Nurse Practitioner Family
DX: R10.9 Unspecified abdominal pain (principal); K44.9 Diaphragmatic hernia without obstruction or gangrene
CPT/HCPCS: 36415; 74176; 80053; 85025

== ENCOUNTER 2022-08-05 10:40 | Emergency (ER) | payer BC, SELFPAY ==
--- NOTE | ~2022-08-05 | CT_ITS ---
Non-contrast CT scan of the Abdomen and Pelvis Clinical indication: Left flank pain Technique: 5 mm axial scans were obtained through the abdomen and pelvis without intravenous or oral contrast. Dose reduction technique was used on this scan by utilizing automated exposure control and iterative reconstruction technique. The dose-length product (DLP) was 199.41 mGy-cm. COMPARISON: 06/12/2022 Findings: Images through the lung bases reveal no abnormalities. There is a 4 mm stone which is either at the left UVJ, possibly just within the urinary bladder. Ther e is minimal fullness of the left renal collecting system and left ureter. No right renal or ureteral stone. No right hydronephrosis. There are areas of renal cortical parenchymal scarring. The liver, spleen, pancreas, gallbladder, and adrenals appear normal. There is no aortic aneurysm. There is no evidence of bowel obstruction. Images through the pelvis were performed. There is no evidence of ascites or lymphadenopathy. Prostat e gland and seminal vesicles are unremarkable. Impression: 4 mm stone at the left UVJ versus just within the urinary bladder. Minimal fullness of left renal collecting system and left ureter. Reviewed, dictated and finalized at [facility]. 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 Minimal fullness of left renal collecting system and left ureter.
--- NOTE | ~2022-08-05 | XR_ITS ---
EXAMINATION: XR abdomen/kub 1V DATE: 08/05/2022 13:37 INDICATION: Left flank pain. Urolithiasis. TECHNIQUE: A supine view of the abdomen on 2 radiographs was obtained. COMPARISON: Abdomen radiographs 05/09/2021, CT abdomen and pelvis 08/05/2022 FINDINGS: There are no dilated loops of bowel. There is a 4 mm stone at left ureterovesicular junctio n. IMPRESSION: 1. 4 mm stone at left ureterovesicular junction. Reviewed, dictated and finalized at location A. 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
[2022-08-05 10:42] VITALS: BP 142/98; RESP 18; TEMP 36.3
[2022-08-05] MEDS: SODIUM CHLORIDE 0.9% IV 1,000 ML 999 ML IV CONT ×2 (10:54→12:36)
--- NOTE | 2022-08-05 10:58 | ED.ABDPAIN ---
HPI - Abdominal Pain General Chief Complaint: Abdominal Pain Stated Complaint: left flank pain with hematuria - hx of kidney ston Time Seen by Provider: 08/05/22 10:46 History of Present Illness HPI narrative: 47-year-old male history history of kidney stones presents the emergency room with sudden onset of left flank pain. Patient states pain radiates into his groin area. Patient also reports urinary hesitancy with hematuria. Also reports nausea. Related Data Allergies Allergy/AdvReac Type Severity Reaction Status Date / Time Sulfa (Sulfonamide Allergy Unknown Hives Verified 08/05/22 10:41 Antibiotics) esomeprazole AdvReac Unknown DIARRHEA/GI Verified 08/05/22 14:25 UPSET Review of Systems Review of Systems: CONSTITUTIONAL: Denies fever, chills, or sweats. EYES: Denies visual changes, redness, or discharge. ENT: Denies rhinorrhea, congestion, sore throat, or otalgia. CARDIOVASCULAR: Denies chest pain, palpitations, or edema. RESPIRATORY: Denies cough or dyspnea. GASTROINTESTINAL: Reports flank pain GENITOURINARY: Reports hematuria. SKIN: Denies rash or itching. MUSCULOSKELETAL: Denies back pain, joint pain, or myalgia. NEUROLOGIC: Denies headache, numbness, dizziness, or weakness. PSYCHIATRIC: Denies anxiety or depression. [facility] Past Medical History Medical History Carpal tunnel syndrome of right wrist Cellulitis of right elbow Cubital tunnel syndrome on right Gastroesophageal reflux disease Herpes zoster without complication Irritability and anger Olecranon bursitis of right elbow ADAM (obstructive sleep apnea) Overweight (BMI 25.0-29.9) Right elbow pain Screening for depression Seasonal allergies Ulnar nerve injury Surgical History Surgical History History of appendectomy 1989 Status post emergency tracheotomy for assistance in breathing 1991 Family History Family History Father Spinal injury Mother Family history of diabetes mellitus in first degree relative Family history of coronary artery disease Arthritis Hypertension Social History Social History Smoking status: Never smoker Alcohol intake: current Drinks per week: 1 Alcohol use details: Occasional Substance use: current Substance use type: marijuana Other substance usage details: Medical cannibus card Last use: 05/05/21 Lack of Transportation: No Lack of Food: Never True Current Housing: I Have Housing Concerned About Future Housing: No Difficulty Paying Gas/Electric Bills: No Difficulty Paying for Meds: No Currently Unemployed: No Education: Trade/Vocational Certificate Difficulty w/ Childcare or Family Care: No Living arrangements: with friend(s) Additional living arrangements comments: Girlfriend Occupation/Education: occupation 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 HEAD: Normocephalic, atraumatic. EYES: Conjunctivae normal, PERRLA and EOMI. CHEST: Clear to auscultation. No respiratory distress. No wheezes rales or rhonchi. HEART: Regular rate and rhythm. No murmur heard. Normal peripheral pulses. ABDOMEN: Soft, nontender, nondistended, normal active bowel sounds. BACK: Left CVA tenderness EXTREMITIES: Normal range of motion. No edema. No clubbing or cyanosis SKIN: Warm, dry, no rash. No noted wounds NEURO: No focal deficits. Alert and oriented x3. MAEW. CN's II-XI intact bilaterally, normal gait PSYCH: Cooperative. Normal mood and affect. Cou
[2022-08-05] MEDS: ONDANSETRON INJ 4 MG/2 ML VIAL IV PUSH (11:02)
[2022-08-05] MEDS: HYDROmorphone HCL INJ (*CRX) 1 MG/ML SYR IV PUSH (11:02)
--- NOTE | 2022-08-05 11:06 | PC.NURSE ---
Pt to CT scan via stretcher.
[2022-08-05 11:10] LABS: Basophils Percent Auto 0.5 % (0.2-1.2); Eosinophils Absolute Auto 0.1 K/mm3 (0-0.3); Eosinophils Percent Auto 1.2 % (0-4.4); Hematocrit 44.5 % (42.0-52.0); Hemoglobin 14.9 g/dL (14.0-18.0); Immature Granulocyte Absolute 0.03 K/mm3 (0.00-0.031); Immature Granulocyte Percent A 0.4 % (0-0.5); Lymphocytes Absolute Auto 1.91 K/mm3 (0.9-3.2); Lymphocytes Percent Auto 23.7 % (18.3-44.2); Mean Corpuscular HGB Conc 33.5 g/dl (32-36); Mean Corpuscular Hemoglobin 29.6 pg (26-34); Mean Corpuscular Volume 88.3 fl (80-100); Mean Platelet Volume 9.2 fl (7.4-10.4); Monocytes Absolute Auto 0.5 K/mm3 (0.1-0.6); Monocytes Percent Auto 6.7 % (2.6-8.5); Neutrophils Absolute Auto 5.5 K/mm3 (1.3-6.7); Neutrophils Percent Auto 67.5 % (45.5-73.1); Platelet Count Result 428 k/mm3 (150-375); Red Blood Count 5.04 M/mm3 (4.6-6.20); Red Cell Distribution Width 12.3 % (11.5-14.5); White Blood Count 8.1 K/mm3 (4.5-10.0)
[2022-08-05] MEDS: KETOROLAC 30 MG/ML VIAL (*BKC) IV PUSH (11:30)
[2022-08-05 11:49] LABS: Alanine Aminotransferase 23 U/L (6-50); Alkaline Phosphatase 83 U/L (38-126); Anion Gap 9 mmol/L (8-16); Aspartate Amino Transferase 24 U/L (17-59); Bilirubin,Total 0.4 mg/dL (0.2-1.3); Blood Urea Nitrogen 24 mg/dL (9-20); Calcium 8.8 mg/dL (8.4-10.2); Carbon Dioxide 24 mmol/L (22-30); Chloride 107 mmol/L (98-107); Estimated CRCL calculation 78 ml/min; Estimated Glomerular Filt Rate > 60; Glucose 95 mg/dL (65-110); Sodium 140 mmol/L (137-145)
[2022-08-05 12:13] LABS: Appearance Urine Clear (Clear); Bilirubin Urine Negative (Negative); Blood Urine Negative (Negative); Color Urine Yellow (Yellow); Glucose Urine UA Negative (Negative); Ketones Urine Trace mg/dL (Negative); Leukocyte Esterase Ur Negative LEU/UL (Negative); Nitrate Urine Negative (Negative); Protein Urine Negative (Negative); Urobilinogen Urine 0.2 mg/dL (<2.0); pH Urine 8.5 (5.0-9.0)
[2022-08-05 12:15] LABS: Mucus Urine Rare /lpf; RBC Urine 0-2 /hpf (0-2); Squamous Epithelial Cell Urine Rare /hpf (Few); WBC Urine 0-3 /hpf
[2022-08-05 12:29] LABS: Add Urine Microscopic? YES
[2022-08-05] MEDS: fentaNYL CITRATE INJ (*CRX) 100 MCG/2 ML VIAL 50 MCG IV PUSH ×2 (12:36→15:10)
[2022-08-05 15:04] VITALS: BP 142/76; PULSE 86; RESP 16; O2SAT 98
== END 2022-08-05 15:15 | disposition home or self-care (01) ==
PROVIDERS: Emergency Provider Nurse Practitioner Family; PCP Family Medicine
DX: N20.0 Calculus of kidney (principal); K21.9 Gastro-esophageal reflux disease without esophagitis; G47.30 Sleep apnea, unspecified
CPT/HCPCS: 36415; 74018; 74176; 80053; 81001; 85025; 96361; 96374; 96375; 96376; 99284; J1170; J1885; J2405; J3010; J7030

== ENCOUNTER → 2022-10-15 08:29 | Outpatient (CLI) | payer BC, SELFPAY ==
--- NOTE | ~2022-10-15 | XR_ITS ---
EXAMINATION: XR hand RT 2V INDICATION: Palmar lump of the hand TECHNIQUE: Two views of the right hand are obtained. COMPARISON: None available FINDINGS: No fracture, dislocation, or subluxation. The bones, soft tissues, and joint spaces are nor mal. No radiographic correlate is identified for the reported palpable abnormality of the right hand. IMPRESSION: 1. No radiographic correlate identified for the reported palpable abnormality of the hand appear Reviewed, dictated and finalized at location L. IMPRESSION: 1. No radiographic correlate identified for the reported palpable abnormality o f the hand appear
== END ==
PROVIDERS: PCP Nurse Practitioner Family; Visit Provider Nurse Practitioner Family
DX: R22.31 Localized swelling, mass and lump, right upper limb (principal)
CPT/HCPCS: 73120

== ENCOUNTER 2022-11-05 01:09 | Day surgery (SDC) | payer BC, SELFPAY ==
[2022-10-28 10:33] VITALS: BMI 26.9
--- NOTE | 2022-11-04 20:45 | PM.HPGS ---
History of Present Illness History of Present Illness Consent: Risks, benefits, and alternatives have been discussed and questions answered. Patient agrees to proceed with procedure. Chief complaint: gerd and dysphasia Narrative: Gurinder Diamond is a 47 year old male with history of stricture, having had esophageal dilatation several times in past. He is again having dysphagia for solid food. Review of Systems Review of Systems: All systems reviewed & are unremarkable except as noted in HPI and below PMFSH Past Medical History Medical History Carpal tunnel syndrome of right wrist Cellulitis of right elbow Cubital tunnel syndrome on right Gastroesophageal reflux disease Herpes zoster without complication Irritability and anger Olecranon bursitis of right elbow ADAM (obstructive sleep apnea) Overweight (BMI 25.0-29.9) Right elbow pain Screening for depression Seasonal allergies Ulnar nerve injury Surgical History Surgical History History of appendectomy 1989 Status post emergency tracheotomy for assistance in breathing 1991 Family History Family History Father Spinal injury Mother Family history of diabetes mellitus in first degree relative Family history of coronary artery disease Arthritis Hypertension Social History Social History Smoking status: Never smoker Alcohol intake: current Drinks per week: 4 Alcohol use details: Occasional Substance use: current Substance use type: does not use Other substance usage details: Medical cannibus card Last use: 05/05/21 Lack of Transportation: No Lack of Food: Never True Current Housing: I Have Housing Concerned About Future Housing: No Difficulty Paying Gas/Electric Bills: No Difficulty Paying for Meds: No Currently Unemployed: No Education: Trade/Vocational Certificate Difficulty w/ Childcare or Family Care: No Living arrangements: with family Additional living arrangements comments: Girlfriend Occupation/Education: occupation 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 Gender identity (if verbalized by the patient): Male Sexual Orientation (if Verbalized by the Patient): Straight or Heterosexual Spiritual care concerns: No Agree to blood products: Yes Meds Home Medications and Allergies Home Medications Medication Instructions Recorded Confirmed Type tramadol 50 mg tablet 50 mg PO Q8H PRN pain #20 tabs 06/12/22 10/28/22 Rx ondansetron 4 mg disintegrating 4 mg PO Q8H #14 tabs 08/05/22 10/28/22 Rx tablet diclofenac potassium 50 mg tablet 50 mg PO BID PRN Migraine Headache 09/28/22 11/05/22 Rx #90 tabs tamsulosin 0.4 mg capsule (Flomax) 0.4 mg PO DAILY #90 caps 09/28/22 10/28/22 Rx trazodone 50 mg tablet 50 mg PO QHS PRN sleep 10/15/22 10/28/22 History famotidine 40 mg tablet 40 mg PO BID #90 tabs 10/19/22 10/28/22 Rx Allergies Allergy/AdvReac Type Severity Reaction Status Date / Time Sulfa (Sulfonamide Allergy Unknown Hives Verified 11/05/22 11:03 Antibiotics) esomeprazole AdvReac Unknown DIARRHEA/GI Verified 11/05/22 11:03 UPSET Exam Const: General: alert Orientation/consciousness: patient oriented x3 Resp: Auscultation: clear to auscultation bilaterally Cardio: Rhythm: regular rhythm GI: GI Palp: Yes Soft to palpation and No Tenderness to palpation present (GI) Neuro: General: patient oriented x3 Assessment and Plan Assessment and plan (1) Dysphagia: Code(s): R13.10 - Dysphagia, unspecified Status: Acute Assessment and Plan: EGD with possible biopsy or dilatation or cautery.
[2022-11-05 11:04] VITALS: BP 120/79; PULSE 69; RESP 19; TEMP 36.3; O2SAT 100
[2022-11-05] MEDS: LACTATED RINGERS 1,000 ML 150 ML IV CONT (11:19)
--- NOTE | 2022-11-05 11:22 | WPDANESEPPF ---
Anes - Initial Pre Proc Eval Procedure: Operation Date: 11/05/22 14:30 Proposed Procedures p Esophagogastroduodenoscopy - Anthony Black MD Date/Time: 11/05/22 11:22 Surgeon: Anthony Black MD Pre Op Diagnosis: gerd and dysphasia Patient Data Age: 47 Gender: M Height: 1.73 m Weight: 75.2 kg Last Vital Signs Temp 36.3 C L 11/05/22 11:04 Pulse 69 11/05/22 11:04 Resp 19 11/05/22 11:04 BP 120/79 11/05/22 11:04 Pulse Ox 100 11/05/22 11:04 O2 Del Method Room Air 11/05/22 11:04 Allergies Allergy/AdvReac Type Severity Reaction Status Date / Time Sulfa (Sulfonamide Allergy Unknown Hives Verified 11/05/22 11:03 Antibiotics) esomeprazole AdvReac Unknown DIARRHEA/GI Verified 11/05/22 11:03 UPSET Home Medications Medication Instructions Recorded Confirmed Type tramadol 50 mg tablet 50 mg PO Q8H PRN pain #20 tabs 06/12/22 10/28/22 Rx ondansetron 4 mg disintegrating 4 mg PO Q8H #14 tabs 08/05/22 10/28/22 Rx tablet diclofenac potassium 50 mg tablet 50 mg PO BID PRN Migraine Headache 09/28/22 11/05/22 Rx #90 tabs tamsulosin 0.4 mg capsule (Flomax) 0.4 mg PO DAILY #90 caps 09/28/22 10/28/22 Rx trazodone 50 mg tablet 50 mg PO QHS PRN sleep 10/15/22 10/28/22 History famotidine 40 mg tablet 40 mg PO BID #90 tabs 10/19/22 10/28/22 Rx Patient hx anesthesia problems: none Family hx anesthesia problems: none Results Review: All pre-operative results and documents have been reviewed as part of the pre-operative evaluation. [facility] Past Medical History Medical History Carpal tunnel syndrome of right wrist Cellulitis of right elbow Cubital tunnel syndrome on right Gastroesophageal reflux disease Herpes zoster without complication Irritability and anger Olecranon bursitis of right elbow ADAM (obstructive sleep apnea) Overweight (BMI 25.0-29.9) Right elbow pain Screening for depression Seasonal allergies Ulnar nerve injury Surgical History Surgical History History of appendectomy 1989 Status post emergency tracheotomy for assistance in breathing 1991 Family History Family History Father Spinal injury Mother Family history of diabetes mellitus in first degree relative Family history of coronary artery disease Arthritis Hypertension Social History Social History Smoking status: Never smoker Alcohol intake: current Drinks per week: 4 Alcohol use details: Occasional Substance use: current Substance use type: does not use Other substance usage details: Medical cannibus card Last use: 05/05/21 Lack of Transportation: No Lack of Food: Never True Current Housing: I Have Housing Concerned About Future Housing: No Difficulty Paying Gas/Electric Bills: No Difficulty Paying for Meds: No Currently Unemployed: No Education: Trade/Vocational Certificate Difficulty w/ Childcare or Family Care: No Living arrangements: with family Additional living arrangements comments: Girlfriend Occupation/Education: occupation 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 Gender identity (if verbalized by the patient): Male Sexual Orientation (if Verbalized by the Patient): Straight or Heterosexual Spiritual care concerns: No Agree to blood products: Yes Anes - Eval Final PreProcedure Day of Procedure 11/05/22 11:22 Patient weight: normal Heart: regular rate and rhythm Lungs: clear to auscultation Airway: Mallampati scale class II Neurological: alert and oriented Last oral intake: >/= 8 hours ASA classification: II Emergent: no Anesthetic plan: proceed Anesthesia type and monitoring: general GIVS and standard monitoring Results Review: All pre-operative results and documents have been re
[2022-11-05 11:57] VITALS: BP 85/48; PULSE 71; RESP 23; O2SAT 97
[2022-11-05 12:07] VITALS: BP 89/56; PULSE 67; RESP 24; O2SAT 99
[2022-11-05 12:17] VITALS: BP 108/72; PULSE 62; RESP 20; O2SAT 100
--- NOTE | 2022-11-05 12:55 | SUR.PHASEII ---
Patient c/o migraine headache and stayed to complete 1 liter of LR per request of CORRECTION WORKER.
== END 2022-11-05 13:08 | disposition home or self-care (01) ==
PROVIDERS: PCP Nurse Practitioner Family; Visit Provider Internal Medicine Gastroenterology
PROC: 0DJ08ZZ Inspection of Upper Intestinal Tract, Via Natural or Artificial Opening Endoscopic (ICD-10-PCS; CPT 43235; principal; 2022-11-05 14:30)
DX: K22.2 Esophageal obstruction (principal); K44.9 Diaphragmatic hernia without obstruction or gangrene; K21.9 Gastro-esophageal reflux disease without esophagitis; G47.33 Obstructive sleep apnea (adult) (pediatric)
CPT/HCPCS: 43249; C1726; J2704; J7120

== ENCOUNTER 2022-12-10 00:58 | Day surgery (SDC) | payer BC, SELFPAY ==
[2022-12-02 15:37] VITALS: BMI 26.1
--- NOTE | 2022-12-02 15:41 | PC.NURSE ---
Report to the Outpatient Waiting Room, entrance under the green pavilion located off [facility], at time 0800 on date 12/10/22. Planned Procedure Time: 1000. Time changes happen often and if your time is changed the preop area will call you the afternoon before. - You and your visitor will be asked to self-screen and do not enter if you have any COVID symptoms. - A mask is optional within the hospital at this time. Patients may have clear liquids (water, carbonated beverages, clear teas, apple juice) until 3 hours prior to surgery with a maximum of 20 ounces. - No food from midnight until time of surgery Take the following medications with a SIP of water the morning of surgery: TRAMADOL IF NEEDED DO NOT STOP ANY OF YOUR OTHER PRESCRIPTION MEDICATIONS PRIOR TO SURGERY EXCEPT THE FOLLOWING Medications to discontinue per physician: DICLOFENAC/NSAIDS Date to take last dose: 12/02/22 Please no make-up, nail japanese, hairspray, perfume, deodorant, or body powder the day of surgery. No jewelry (including any body piercings) or valuables the day of surgery, leave them at home. Please take a shower or bath the night before, or the morning of, surgery with an antibacterial soap. Wear comfortable, loose fitting clothing. - Jewelry must be removed prior to entering the operating room. Rings and piercings that are not removed may be cut off. - The hospital will not accept responsibility for valuables. - Please leave all valuables, including medications, at home the day of surgery. If you are going home after surgery, a licensed cdl flatbed truck driver must drive you home. - NO public transportation without another adult if you receive anesthesia. - We recommend that an adult stay with you for 24 hours following discharge. - We also recommend that you do not drive, make important decision, drink alcoholic beverages, or take any drugs that were not prescribed by your health care provider for at least 24 hours after your discharge time. Follow any additional instructions given to you from your surgeon. If you or anyone in your household have experienced Covid symptoms in the past week, please notify your surgeon or the nurse liaison at the phone number below for possible testing. Telephone instructions given to PT - MARIA C GILL and asked if any additional questions and then verbalized understanding. Patient advised to call surgeon office or pre surgery nurse liaison [phone] if any additional questions.
[2022-12-10] VITALS (14 sets, daily range): BP systolic 104–136; BP diastolic 67–99; PULSE 53–91; RESP 12–16; TEMP 36.3–36.7; O2SAT 95–100; BMI 25.7
--- NOTE | 2022-12-10 07:06 | WPDHPUPDATE1 ---
History and Physical Update Update Date/Time: 12/10/22 07:06 History and Physical has been reviewed, including an updated exam of the patient. There are NO changes in the patient's condition. Risks, benefits, and alternatives have been discussed and questions answered. Patient agrees to proceed with procedure.
[2022-12-10] MEDS: LACTATED RINGERS 1,000 ML 30 ML IV CONT ×3 (09:00→15:28)
--- NOTE | 2022-12-10 09:29 | SUR.PREOP ---
0900: Patient nauseated. Dr. Palencia notified. no new orders at this time. Will monitor and address with Dr. Palencia prior to surgery.
--- NOTE | 2022-12-10 09:57 | WPDANESEPPF ---
Anes - Initial Pre Proc Eval Procedure: Operation Date: 12/10/22 10:00 Proposed Procedures p Left Carpal and Cubital Tunnel Release, Left Elbow Injection, - Osvaldo Still MD s Right Foot Injection - Osvaldo Still MD Date/Time: 12/10/22 09:57 Surgeon: Osvaldo Still MD Pre Op Diagnosis: lft carpal&cubital vicki synd, lft lat epicondylitis Patient Data Age: 47 Gender: M Height: 1.73 m Weight: 76.6 kg Last Vital Signs Temp 36.3 C L 12/10/22 08:16 Pulse 65 12/10/22 08:16 Resp 16 12/10/22 08:16 BP 128/83 12/10/22 08:16 Pulse Ox 100 12/10/22 08:16 O2 Del Method Room Air 12/10/22 08:16 Allergies Allergy/AdvReac Type Severity Reaction Status Date / Time Sulfa (Sulfonamide Allergy Unknown Hives Verified 12/10/22 09:53 Antibiotics) esomeprazole AdvReac Unknown DIARRHEA/GI Verified 12/10/22 09:53 UPSET Home Medications Medication Instructions Recorded Confirmed Type tramadol 50 mg tablet 50 mg PO Q8H PRN pain #20 tabs 06/12/22 12/02/22 Rx ondansetron 4 mg disintegrating 4 mg PO Q8H #14 tabs 08/05/22 12/02/22 Rx tablet diclofenac potassium 50 mg tablet 50 mg PO BID PRN Migraine Headache 09/28/22 12/02/22 Rx #90 tabs tamsulosin 0.4 mg capsule (Flomax) 0.4 mg PO DAILY #90 caps 09/28/22 12/02/22 Rx trazodone 50 mg tablet 50 mg PO QHS PRN sleep 10/15/22 12/02/22 History famotidine 40 mg tablet 40 mg PO BID #90 tabs 10/19/22 12/02/22 Rx Patient hx anesthesia problems: none Family hx anesthesia problems: none Results Review: All pre-operative results and documents have been reviewed as part of the pre-operative evaluation. [facility] Past Medical History Medical History Carpal tunnel syndrome of right wrist Carpal tunnel syndrome, left Cellulitis of right elbow Cubital tunnel syndrome on left Cubital tunnel syndrome on right Gastroesophageal reflux disease Herpes zoster without complication Irritability and anger Lateral epicondylitis of left elbow Olecranon bursitis of right elbow ADAM (obstructive sleep apnea) Overweight (BMI 25.0-29.9) Right elbow pain Screening for depression Seasonal allergies Tendinitis of right foot Ulnar nerve injury Surgical History Surgical History History of appendectomy 1989 Status post emergency tracheotomy for assistance in breathing 1991 Family History Family History Father Spinal injury Mother Family history of diabetes mellitus in first degree relative Family history of coronary artery disease Arthritis Hypertension Social History Social History Smoking status: Never smoker Alcohol intake: current Drinks per week: 5 Alcohol use details: Occasional Substance use: current Substance use type: marijuana Other substance usage details: Medical cannibus card Last use: 05/05/21 Lack of Transportation: No Lack of Food: Never True Current Housing: I Have Housing Concerned About Future Housing: No Difficulty Paying Gas/Electric Bills: No Difficulty Paying for Meds: No Currently Unemployed: No Education: Trade/Vocational Certificate Difficulty w/ Childcare or Family Care: No Living arrangements: with family Additional living arrangements comments: Girlfriend Occupation/Education: occupation 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
[2022-12-10] MEDS: ONDANSETRON INJ 4 MG/2 ML VIAL IV PUSH ×2 (10:14→14:42)
[2022-12-10] MEDS: KETOROLAC 15 MG/ML VIAL (*BKC) IV PUSH (10:14)
[2022-12-10] MEDS: SCOPOLAMINE 1.5 MG PATCH TRANSDERM (10:15)
[2022-12-10] MEDS: ACETAMINOPHEN 500 MG TABLET 1000 MG PO (10:15)
[2022-12-10] MEDS: ceFAZolin 2 GM/D5W 50 ML 2 GM/50 ML BAG IVPB (10:49)
[2022-12-10] MEDS: BUPivacaine HCL 0.5% PF 30 ML VIAL 7 ML INFILTRATE (10:58)
[2022-12-10] MEDS: BUPivacaine HCL 0.5% 10 ML AMP 30 ML INFILTRATE (11:15)
--- NOTE | 2022-12-10 12:19 | W.PM.PROC2 ---
Procedure Note - Detailed Date of Procedure 12/10/22 Pre-op Diagnosis lft carpal&cubital vicki synd, lft lat epicondylitis , right foot peroneal tendinitis Post-op Diagnosis Same Procedure Performed left cubital release, left carpal tunnel release, left lateral elbow injection, right lateral foot injection. Surgeon Osvaldo Still MD [employer] Consultant 1St assistant commissioner Anesthesia General Indications 47-year-old with left cubital and carpal tunnel syndrome as well as lateral epicondylitis And right foot peroneal tendinitis. diagnosis confirmed with electro diagnostic studies. Patient has failed conservative treatment with bracing, activity modification and anti-inflammatories. He has had similar surgery on the right side with good result. Presents for same on left. Description of Procedure After informed consent was given, the operative extremity was marked in the preoperative holding area. Intravenous antibiotics were given. The patient was taken to the operating room and underwent General anesthesia by the anesthesia team. A time-out was performed confirming patient, procedure, and operative site. Local infiltrate at the carpal tunnel and cubital tunnel was done with 0.5% marcaine. Prepping and draping was done using chloraprep skin solution with usual surgical sterile technique. Anatomic landmarks marked on skin. Hand was exsanguinated and arm tourniquet inflated to 225mmHg. elbow was addressed 1st. A curvilinear incision made over the cubital tunnel with a 15 blade knife. Hemostasis controlled electrocautery. Dissection with for tenotomy scissors then done down to the cubital tunnel. Tunnel was 1st released proximally under direct visualization. Working from proximal to distal we then released the cubital tunnel over the ulnar nerve protected the ulnar nerve with a [place] elevator. Release was carried distally to the flexor musculature. Release of the leading edge of the fascia of the muscle was done under direct visualization. Release was taken distally to the ulnar nerve branch point. The elbow was then taken through full range of motion. The ulnar nerve Was noted to be free and remained stable. wound irrigated with solution. Subcutaneous tissue then repaired with 2-0 Vicryl and 3-0 Monocryl interrupted suture. Skin repaired with 4-0 nylon running suture. Carpal tunnel then addressed. Incision was made with #15 blade knife in skin crease on volar palm. Hemostasis was achieved with electrocautery. Careful dissection was carried down to the transverse carpal ligament. Retractors were placed. Ligament overlying median nerve was incised in line with skin incision using [place] blade. Proximal and distal release was done with metzenbaum scissors under direct visualization. Mosquito clamp was placed deep to ligament to protect nerve during release. The nerve was inspected and noted to be intact with mild flattening. Tendons had good excursion. The tourniquet was then released and pressure held. Bleeding points were coagulated with bipolar cautery. The wound was thoroughly irrigated with antibiotic solution. The skin was closed with 4-0 nylon interrupted suture. A sterile dressing was applied. Good capillary refill in the fingers and thumb was noted. Left lateral elbow sterilized with alcohol prep solution. 25 gauge needle used to inject the left lateral epicondyle. 40 mg Depo-Medrol 3 cc of 0.5% Marcaine injected into the origin of the wrist extensor. Sterile dressing then applied. Right foot insertion of peroneal tendon on the 5th metatarsal was prepped with alcohol prep solution. 25 gauge needle used to inject peroneus brevis tendon sheath with 40 mg Depo-Medrol and 3 cc of 0.5% Marcaine plain. Sterile dressing applied. The patient was transported to the recovery room in stable condition. All sponge, needle, instrument counts were correct at the end of the case. Estimated Blood Loss -5.0 Tourniquet Time 45 Drains No Packing No
[2022-12-10] MEDS: diphenhydrAMINE HCl INJ 50 MG/ML VIAL 25 MG IV PUSH (12:31)
== END 2022-12-10 16:45 | disposition home or self-care (01) ==
PROVIDERS: PCP Nurse Practitioner Family; Visit Provider Orthopaedic Surgery
PROC: (CPT 64721; principal; 2022-12-10 10:00)
PROC: (CPT 64721; 2022-12-10 10:00)
DX: G56.02 Carpal tunnel syndrome, left upper limb (principal); G56.22 Lesion of ulnar nerve, left upper limb; M77.12 Lateral epicondylitis, left elbow; M76.71 Peroneal tendinitis, right leg; K21.9 Gastro-esophageal reflux disease without esophagitis; G47.33 Obstructive sleep apnea (adult) (pediatric); F12.90 Cannabis use, unspecified, uncomplicated
CPT/HCPCS: 64721; 64718; 20550; 20551; A9270; J0690; J1030; J1040; J1200; J1885; J2250; J2405; J2704; J3010; J7120

== ENCOUNTER 2023-01-08 00:43 | Day surgery (SDC) | payer BC, SELFPAY ==
[2022-12-24 10:15] VITALS: BMI 26.8
--- NOTE | 2023-01-07 15:01 | PM.HPGS ---
History of Present Illness History of Present Illness Consent: Risks, benefits, and alternatives have been discussed and questions answered. Patient agrees to proceed with procedure. Chief complaint: Esophageal Stricture Narrative: Gurinder Diamond is a 47 year old male With dysphagia for solid foods and recurrent esophageal stricture. He last had dilatation of his stricture in October of this year. At that time I was able to dilated stricture up to 18 mm. although he has improved, he is still having occasional issues of food hanging up when he swallows. Review of Systems Review of Systems: All systems reviewed & are unremarkable except as noted in HPI and below PMFSH Past Medical History Medical History Carpal tunnel syndrome of right wrist Carpal tunnel syndrome, left Cellulitis of right elbow Cubital tunnel syndrome on left Cubital tunnel syndrome on right Gastroesophageal reflux disease Herpes zoster without complication Irritability and anger Lateral epicondylitis of left elbow Olecranon bursitis of right elbow ADAM (obstructive sleep apnea) Overweight (BMI 25.0-29.9) Right elbow pain Screening for depression Seasonal allergies Tendinitis of right foot Ulnar nerve injury Surgical History Surgical History History of appendectomy 1989 Status post emergency tracheotomy for assistance in breathing 1991 Family History Family History Father Spinal injury Mother Family history of diabetes mellitus in first degree relative Family history of coronary artery disease Arthritis Hypertension Social History Social History Smoking status: Never smoker Alcohol intake: current Drinks per week: 7 Alcohol use details: Occasional Substance use: current Substance use type: marijuana Other substance usage details: Medical cannibus card Last use: 05/05/21 Lack of Transportation: No Lack of Food: Never True Current Housing: I Have Housing Concerned About Future Housing: No Difficulty Paying Gas/Electric Bills: No Difficulty Paying for Meds: No Currently Unemployed: No Education: Trade/Vocational Certificate Difficulty w/ Childcare or Family Care: No Living arrangements: with family Additional living arrangements comments: Girlfriend Occupation/Education: occupation 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 Gender identity (if verbalized by the patient): Male Sexual Orientation (if Verbalized by the Patient): Straight or Heterosexual Spiritual care concerns: No Agree to blood products: Yes Meds Home Medications and Allergies Home Medications Medication Instructions Recorded Confirmed Type tamsulosin 0.4 mg capsule (Flomax) 0.4 mg PO DAILY #90 caps 09/28/22 01/08/23 Rx trazodone 50 mg tablet 50 mg PO QHS PRN sleep 10/15/22 01/08/23 History famotidine 40 mg tablet 40 mg PO BID #90 tabs 10/19/22 01/08/23 Rx diclofenac potassium 50 mg tablet 50 mg PO BID PRN Migraine Headache 12/10/22 01/08/23 Rx #90 tabs hydrocodone 7.5 mg-acetaminophen 1 tablet PO Q6H PRN pain #30 tabs 12/10/22 01/08/23 Rx 325 mg tablet ondansetron 4 mg disintegrating 4 mg PO Q8H #14 tabs 12/10/22 01/08/23 Rx tablet Allergies Allergy/AdvReac Type Severity Reaction Status Date / Time Sulfa (Sulfonamide Allergy Unknown Hives Verified 01/08/23 09:46 Antibiotics) esomeprazole AdvReac Unknown DIARRHEA/GI Verified 01/08/23 09:46 UPSET Exam Const: General: alert Orientation/consciousness: patient oriented x3 Resp: Auscultation: clear to auscultation bilaterally Cardio: Rhythm: regular rhythm GI: GI Palp: Yes Soft to palpation and No Tenderness to palpation present (GI) Neuro: General: patient oriented x3 Assessment and Plan Assessme
[2023-01-08 09:47] VITALS: BP 126/98; PULSE 67; RESP 18; TEMP 36.3; O2SAT 100; BMI 24.7
[2023-01-08] MEDS: LACTATED RINGERS 1,000 ML 150 ML IV CONT (09:50)
--- NOTE | 2023-01-08 10:25 | WPDANESEPPF ---
Anes - Initial Pre Proc Eval Procedure: Operation Date: 01/08/23 10:45 Proposed Procedures p Esophagogastroduodenoscopy - Anthony Black MD Date/Time: 01/08/23 10:25 Surgeon: Anthony Black MD Pre Op Diagnosis: Esophageal Stricture Patient Data Age: 47 Gender: M Height: 1.73 m Weight: 73.7 kg Last Vital Signs Temp 97.3 F L 01/08/23 09:47 Pulse 67 01/08/23 09:47 Resp 18 01/08/23 09:47 BP 126/98 H 01/08/23 09:47 Pulse Ox 100 01/08/23 09:47 O2 Del Method Room Air 01/08/23 09:47 Allergies Allergy/AdvReac Type Severity Reaction Status Date / Time Sulfa (Sulfonamide Allergy Unknown Hives Verified 01/08/23 09:46 Antibiotics) esomeprazole AdvReac Unknown DIARRHEA/GI Verified 01/08/23 09:46 UPSET Home Medications Medication Instructions Recorded Confirmed Type tamsulosin 0.4 mg capsule (Flomax) 0.4 mg PO DAILY #90 caps 09/28/22 01/08/23 Rx trazodone 50 mg tablet 50 mg PO QHS PRN sleep 10/15/22 01/08/23 History famotidine 40 mg tablet 40 mg PO BID #90 tabs 10/19/22 01/08/23 Rx diclofenac potassium 50 mg tablet 50 mg PO BID PRN Migraine Headache 12/10/22 01/08/23 Rx #90 tabs hydrocodone 7.5 mg-acetaminophen 1 tablet PO Q6H PRN pain #30 tabs 12/10/22 01/08/23 Rx 325 mg tablet ondansetron 4 mg disintegrating 4 mg PO Q8H #14 tabs 12/10/22 01/08/23 Rx tablet Patient hx anesthesia problems: none Family hx anesthesia problems: none Results Review: All pre-operative results and documents have been reviewed as part of the pre-operative evaluation. [facility] Past Medical History Medical History Carpal tunnel syndrome of right wrist Carpal tunnel syndrome, left Cellulitis of right elbow Cubital tunnel syndrome on left Cubital tunnel syndrome on right Gastroesophageal reflux disease Herpes zoster without complication Irritability and anger Lateral epicondylitis of left elbow Olecranon bursitis of right elbow AADM (obstructive sleep apnea) Overweight (BMI 25.0-29.9) Right elbow pain Screening for depression Seasonal allergies Tendinitis of right foot Ulnar nerve injury Surgical History Surgical History History of appendectomy 1989 Status post emergency tracheotomy for assistance in breathing 1991 Family History Family History Father Spinal injury Mother Family history of diabetes mellitus in first degree relative Family history of coronary artery disease Arthritis Hypertension Social History Social History Smoking status: Never smoker Alcohol intake: current Drinks per week: 7 Alcohol use details: Occasional Substance use: current Substance use type: marijuana Other substance usage details: Medical cannibus card Last use: 05/05/21 Lack of Transportation: No Lack of Food: Never True Current Housing: I Have Housing Concerned About Future Housing: No Difficulty Paying Gas/Electric Bills: No Difficulty Paying for Meds: No Currently Unemployed: No Education: Trade/Vocational Certificate Difficulty w/ Childcare or Family Care: No Living arrangements: with family Additional living arrangements comments: Girlfriend Occupation/Education: occupation 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
[2023-01-08] MEDS: BENZOCAINE (*SP) 60 ML SPRAY CAN (HURRICAINE) 1 SPRAY MUCOUS MEM (10:46)
[2023-01-08 10:59] VITALS: BP 98/52; PULSE 93; RESP 23; O2SAT 94
[2023-01-08 11:09] VITALS: BP 101/79; PULSE 77; RESP 16; O2SAT 96
[2023-01-08 11:19] VITALS: BP 109/79; PULSE 60; RESP 18; O2SAT 99
== END 2023-01-08 12:05 | disposition home or self-care (01) ==
PROVIDERS: PCP Nurse Practitioner Family; Visit Provider Internal Medicine Gastroenterology
PROC: 0DJ08ZZ Inspection of Upper Intestinal Tract, Via Natural or Artificial Opening Endoscopic (ICD-10-PCS; CPT 43235; principal; 2023-01-08 10:45)
DX: K22.2 Esophageal obstruction (principal); K44.9 Diaphragmatic hernia without obstruction or gangrene; G47.33 Obstructive sleep apnea (adult) (pediatric); K21.9 Gastro-esophageal reflux disease without esophagitis; F12.90 Cannabis use, unspecified, uncomplicated
CPT/HCPCS: 43249; C1726; J2704; J7120

== ENCOUNTER 2023-03-31 16:01 | Outpatient (CLI) | payer OTHER, SELFPAY ==
[2023-03-31 19:01] LABS: Basophils Absolute Auto 0.1 K/mm3 (0.0-0.1); Basophils Percent Auto 0.8 % (0.2-1.2); Eosinophils Absolute Auto 0.2 K/mm3 (0-0.3); Eosinophils Percent Auto 3.1 % (0-4.4); Hematocrit 43.2 % (42.0-52.0); Hemoglobin 14.5 g/dL (14.0-18.0); Immature Granulocyte Absolute 0.02 K/mm3 (0.00-0.031); Immature Granulocyte Percent A 0.3 % (0-0.5); Lymphocytes Absolute Auto 2.14 K/mm3 (0.9-3.2); Lymphocytes Percent Auto 28.5 % (18.3-44.2); Mean Corpuscular HGB Conc 33.6 g/dl (32-36); Mean Corpuscular Hemoglobin 29.9 pg (26-34); Mean Corpuscular Volume 89.1 fl (80-100); Mean Platelet Volume 9.1 fl (7.4-10.4); Monocytes Absolute Auto 0.9 K/mm3 (0.1-0.6); Monocytes Percent Auto 11.4 % (2.6-8.5); Neutrophils Absolute Auto 4.2 K/mm3 (1.3-6.7); Neutrophils Percent Auto 55.9 % (45.5-73.1); Platelet Count Result 388 k/mm3 (150-375); Red Blood Count 4.85 M/mm3 (4.6-6.20); Red Cell Distribution Width 11.9 % (11.5-14.5); White Blood Count 7.5 K/mm3 (4.5-10.0)
[2023-03-31 20:02] LABS: Alanine Aminotransferase 28 U/L (6-50); Albumin Level 4.7 g/dL (3.5-5.1); Alkaline Phosphatase 91 U/L (38-126); Anion Gap 7 mmol/L (8-16); Aspartate Amino Transferase 59 U/L (17-59); Bilirubin,Total 0.8 mg/dL (0.2-1.3); Blood Urea Nitrogen 19 mg/dL (9-20); Calcium 9.2 mg/dL (8.4-10.2); Carbon Dioxide 29 mmol/L (22-30); Chloride 103 mmol/L (98-107); Cholesterol 219 mg/dL (0-200); Estimated Glomerular Filt Rate > 60; Glucose 91 mg/dL (65-110); HDL Direct 35 mg/dL; Potassium 4.3 mmol/L (3.4-5.0); Sodium 139 mmol/L (137-145); Triglycerides 199 mg/dL (<150)
[2023-03-31 20:21] LABS: LDL Cholesterol Direct 118 mg/dL
[2023-03-31 20:33] LABS: Thyroid Stimulating Hormone 0.909 uIU/mL (0.465-4.680)
[2023-04-03 10:40] LABS: Vitamin D 1,25 (OH)2 Total 36 pg/mL (18-72); Vitamin D2 1,25 (OH)2 <8 pg/mL; Vitamin D3 1,25 (OH)2 36 pg/mL
== END 2023-03-31 16:02 | disposition home or self-care (01) ==
LOC: ANHGOSHLAB 16:02
PROVIDERS: PCP Family Medicine; Visit Provider Nurse Practitioner Family
DX: Z00.00 Encounter for general adult medical examination without abnormal findings (principal); E55.9 Vitamin D deficiency, unspecified; K21.9 Gastro-esophageal reflux disease without esophagitis
CPT/HCPCS: 36415; 80053; 80061; 82652; 84443; 85025

== ENCOUNTER 2023-05-25 15:37 | Outpatient (CLI) | payer OTHER, SELFPAY ==
[2023-05-25 16:03] LABS: Basophils Percent Auto 0.5 % (0.2-1.2); Eosinophils Absolute Auto 0.1 K/mm3 (0-0.3); Eosinophils Percent Auto 1.6 % (0-4.4); Hematocrit 43.8 % (42.0-52.0); Hemoglobin 14.9 g/dL (14.0-18.0); Immature Granulocyte Absolute 0.03 K/mm3 (0.00-0.031); Immature Granulocyte Percent A 0.4 % (0-0.5); Lymphocytes Absolute Auto 1.99 K/mm3 (0.9-3.2); Lymphocytes Percent Auto 23.7 % (18.3-44.2); Mean Corpuscular Hemoglobin 29.7 pg (26-34); Mean Corpuscular Volume 87.3 fl (80-100); Mean Platelet Volume 8.8 fl (7.4-10.4); Monocytes Absolute Auto 0.7 K/mm3 (0.1-0.6); Monocytes Percent Auto 7.9 % (2.6-8.5); Neutrophils Absolute Auto 5.5 K/mm3 (1.3-6.7); Neutrophils Percent Auto 65.9 % (45.5-73.1); Platelet Count Result 375 k/mm3 (150-375); Red Blood Count 5.02 M/mm3 (4.6-6.20); Red Cell Distribution Width 11.9 % (11.5-14.5); White Blood Count 8.4 K/mm3 (4.5-10.0)
[2023-05-25 16:37] LABS: Iron 82 ug/dL (49-181)
[2023-05-25 16:46] LABS: Percent Iron Saturation 26 % (20-50)
[2023-05-25 16:47] LABS: Alanine Aminotransferase 47 U/L (6-50); Albumin Level 4.8 g/dL (3.5-5.1); Alkaline Phosphatase 96 U/L (38-126); Anion Gap 10 mmol/L (8-16); Aspartate Amino Transferase 50 U/L (17-59); Bilirubin,Total 0.7 mg/dL (0.2-1.3); Blood Urea Nitrogen 15 mg/dL (9-20); CRP 0.6 mg/dL (<1.0); Calcium 9.3 mg/dL (8.4-10.2); Carbon Dioxide 29 mmol/L (22-30); Chloride 103 mmol/L (98-107); Estimated Glomerular Filt Rate > 60; Glucose 93 mg/dL (65-110); Potassium 3.8 mmol/L (3.4-5.0); Sodium 142 mmol/L (137-145)
[2023-05-25 16:57] LABS: Erythrocyte Sedimentation Rate 13 mm/hr (0-20)
[2023-06-01 15:04] LABS: Block/Specimen ID Not Given; CALR Exon 9 Mutation Not Detected (Not Detected); CSF3R Exon 14/17 Mutation Not Detected (Not Detected); JAK2 Exon 12 Mutation Not Detected (Not Detected); JAK2 V617F Mutation Not Detected (Not Detected); MPL Exon 10 Mutation Not Detected (Not Detected); Specimen Source Blood
== END 2023-05-25 15:38 | disposition home or self-care (01) ==
LOC: ANHLAB 15:39
PROVIDERS: Nurse Practitioner Family; PCP Family Medicine; Visit Provider Internal Medicine Hematology & Oncology
DX: D47.1 Chronic myeloproliferative disease (principal); D75.839 Thrombocytosis, unspecified
CPT/HCPCS: 36415; 80053; 81219; 81270; 81279; 81339; 81479; 82728; 83540; 83550; 85025; 85652; 86140; 88184

== ENCOUNTER 2023-06-21 01:09 | Day surgery (SDC) | payer OTHER, SELFPAY ==
[2023-06-09 11:05] VITALS: BMI 25.9
--- NOTE | 2023-06-18 10:26 | SUR.PREOP ---
Patient called regarding upcoming procedure. Reviewed preop instructions, appointment times, and procedure prep. Discussed appointment time changes.
--- NOTE | 2023-06-20 14:20 | PM.HPGS ---
History of Present Illness History of Present Illness Consent: Risks, benefits, and alternatives have been discussed and questions answered. Patient agrees to proceed with procedure. Chief complaint: neoplasm screening Narrative: Gurinder Diamond is a 47 year old male Referred for colon cancer screening. I had previously seen him on a few occasions for dilatation of an esophageal stricture . 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 Right elbow pain Screening for depression Seasonal allergies Tendinitis of right foot Ulnar nerve injury Surgical History Surgical History History of appendectomy 1989 Status post emergency tracheotomy for assistance in breathing 1991 Family History Family History Father Spinal injury Mother Family history of diabetes mellitus in first degree relative Family history of coronary artery disease Arthritis Hypertension Social History Social History Social History: Caffeine-tea/coffee/soda occasionally Smoking status: Never smoker Alcohol intake: current Drinks per week: 7 Alcohol use details: couple drinks a month Substance use: current Substance use type: marijuana Other substance usage details: medical card for migraines, uses at prn Last use: 05/05/21 Lack of Transportation: No Lack of Food: Never True Current Housing: I Have Housing Concerned About Future Housing: No Difficulty Paying Gas/Electric Bills: No Difficulty Paying for Meds: No Currently Unemployed: No Education: Trade/Vocational Certificate Difficulty w/ Childcare or Family Care: No Living arrangements: with friend(s) Additional living arrangements comments: Girlfriend Occupation/Education: occupation 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 Gender identity (if verbalized by the patient): Male Sexual Orientation (if Verbalized by the Patient): Straight or Heterosexual Spiritual care concerns: No Agree to blood products: Yes Meds Home Medications and Allergies Home Medications Medication Instructions Recorded Confirmed Type trazodone 50 mg tablet 50 mg PO QHS PRN sleep 10/15/22 06/09/23 History ondansetron 4 mg disintegrating 4 mg PO Q8H #14 tabs 12/10/22 06/09/23 Rx tablet tamsulosin 0.4 mg capsule (Flomax) 0.4 mg PO DAILY #90 caps 03/31/23 06/09/23 Rx famotidine 40 mg/5 mL (8 mg/mL) 40 mg (5 mL) PO DAILY #50 mL 04/12/23 06/09/23 Rx oral suspension diclofenac potassium 50 mg tablet 50 mg PO BID PRN Migraine Headache 06/07/23 06/09/23 Rx #90 tabs Allergies Allergy/AdvReac Type Severity Reaction Status Date / Time Sulfa (Sulfonamide Allergy Unknown Hives Verified 06/21/23 08:46 Antibiotics) esomeprazole AdvReac Unknown DIARRHEA/GI Verified 06/21/23 08:46 UPSET Exam Resp: Auscultation: clear to auscultation bilaterally Cardio: Rate: regular rate Rhythm: regular rhythm GI: GI Palp: Yes Soft to palpation and No Tenderness to palpation present (GI) Assessment and Plan Assessment and plan (1) Colon cancer screening: Code(s): Z12.11 - Encounter for screening for malignant neoplasm of colon Status: Acute Assessment and Plan:
[2023-06-21 08:47] VITALS: BP 105/79; PULSE 72; RESP 14; TEMP 36.2; O2SAT 100
[2023-06-21] MEDS: LACTATED RINGERS 1,000 ML 150 ML IV CONT (08:57)
--- NOTE | 2023-06-21 09:32 | WPDANESEPPF ---
Anes - Initial Pre Proc Eval Procedure: Operation Date: 06/21/23 10:00 Proposed Procedures p Screening Colonoscopy - Anthony Black MD Date/Time: 06/21/23 09:32 Surgeon: Anthony Black MD Pre Op Diagnosis: neoplasm screening Patient Data Age: 47 Gender: M Height: 1.73 m Weight: 75.4 kg Last Vital Signs Temp 97.1 F L 06/21/23 08:47 Pulse 72 06/21/23 08:47 Resp 14 06/21/23 08:47 BP 105/79 06/21/23 08:47 Pulse Ox 100 06/21/23 08:47 O2 Del Method Room Air 06/21/23 08:47 Allergies Allergy/AdvReac Type Severity Reaction Status Date / Time Sulfa (Sulfonamide Allergy Unknown Hives Verified 06/21/23 08:46 Antibiotics) esomeprazole AdvReac Unknown DIARRHEA/GI Verified 06/21/23 08:46 UPSET Home Medications Medication Instructions Recorded Confirmed Type trazodone 50 mg tablet 50 mg PO QHS PRN sleep 10/15/22 06/09/23 History ondansetron 4 mg disintegrating 4 mg PO Q8H #14 tabs 12/10/22 06/09/23 Rx tablet tamsulosin 0.4 mg capsule (Flomax) 0.4 mg PO DAILY #90 caps 03/31/23 06/09/23 Rx famotidine 40 mg/5 mL (8 mg/mL) 40 mg (5 mL) PO DAILY #50 mL 04/12/23 06/09/23 Rx oral suspension diclofenac potassium 50 mg tablet 50 mg PO BID PRN Migraine Headache 06/07/23 06/09/23 Rx #90 tabs Patient hx anesthesia problems: none Family hx anesthesia problems: none Results Review: All pre-operative results and documents have been reviewed as part of the pre-operative evaluation. [facility] Past Medical History Medical History Carpal tunnel syndrome of right wrist Carpal tunnel syndrome, left Cellulitis of right elbow Cubital tunnel syndrome on left Cubital tunnel syndrome on right Gastroesophageal reflux disease Herpes zoster without complication Irritability and anger Lateral epicondylitis of left elbow Left elbow pain Olecranon bursitis of right elbow ADAM (obstructive sleep apnea) Overweight (BMI 25.0-29.9) Radial tunnel syndrome of left upper extremity Right elbow pain Screening for depression Seasonal allergies Tendinitis of right foot Ulnar nerve injury Surgical History Surgical History History of appendectomy 1989 Status post emergency tracheotomy for assistance in breathing 1991 Family History Family History Father Spinal injury Mother Family history of diabetes mellitus in first degree relative Family history of coronary artery disease Arthritis Hypertension Social History Social History Social History: Caffeine-tea/coffee/soda occasionally Smoking status: Never smoker Alcohol intake: current Drinks per week: 7 Alcohol use details: couple drinks a month Substance use: current Substance use type: marijuana Other substance usage details: medical card for migraines, uses at hs prn Last use: 05/05/21 Lack of Transportation: No Lack of Food: Never True Current Housing: I Have Housing Concerned About Future Housing: No Difficulty Paying Gas/Electric Bills: No Difficulty Paying for Meds: No Currently Unemployed: No Education: Trade/Vocational Certificate Difficulty w/ Childcare or Family Care: No Living arrangements: with friend(s) Additional living arrangements comments: Girlfriend Occupation/Education: occupation 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
[2023-06-21 10:01] VITALS: BP 92/62; PULSE 82; RESP 28; O2SAT 94
[2023-06-21 10:17] VITALS: BP 92/62; PULSE 76; RESP 19; O2SAT 93
== END 2023-06-21 10:30 | disposition home or self-care (01) ==
PROVIDERS: PCP Family Medicine; Visit Provider Internal Medicine Gastroenterology
PROC: 0DJD8ZZ Inspection of Lower Intestinal Tract, Via Natural or Artificial Opening Endoscopic (ICD-10-PCS; CPT 45378; principal; 2023-06-21 10:00)
DX: Z12.11 Encounter for screening for malignant neoplasm of colon (principal); K21.9 Gastro-esophageal reflux disease without esophagitis; G47.33 Obstructive sleep apnea (adult) (pediatric); J30.2 Other seasonal allergic rhinitis; F12.90 Cannabis use, unspecified, uncomplicated; Z82.49 Family history of ischemic heart disease and other diseases of the circulatory system
CPT/HCPCS: 45378; J2704; J7120

== ENCOUNTER 2025-01-11 08:55 | Emergency (ER) | payer OTHER, SELFPAY ==
--- NOTE | ~2025-01-11 | XR_ITS ---
EXAMINATION: XR hand LT min 3V DATE: 01/11/2025 09:26 INDICATION: Pain at the left fifth digit. TECHNIQUE: Posteroanterior, oblique and lateral views of the left hand were obtained. COMPARISON: None. FINDINGS: Alignment is normal. No fracture. Joint spaces are normal. Soft tissues are unremarkable. IMPRESSION: 1. Normal left hand radiographs. Reviewed, dictated and finalized at location B.
--- NOTE | 2025-01-11 09:00 | ED_ITS ---
HPI - Extremity Injury (Upper) General Chief Complaint: Extremity Injury, Upper <aNno Poole APRN - Last Filed: 01/11/25 09:20> Stated Complaint: INJURED L HAND <Nano Poole APRN - Last Filed: 01/11/25 09:20> Time Seen by Provider: 01/11/25 09:00 <Nano Poole APRN - Last Filed: 01/11/25 09:20> Source: patient <Nano Poole APRN - Last Filed: 01/11/25 09:20> Mode of arrival: ambulatory <Nano Poole APRN - Last Filed: 01/11/25 09:20> Limitations: no limitations <Nano Poole APRN - Last Filed: 01/11/25 09:20> History of Present Illness HPI narrative: Patient is a 49 year old male who presents to the clinic with complaints of pain to his left 5th finger for one hour. Patient was using machinery at work and his finger got forcefully hyper extended. He endorses having numbness and tingling to his left fifth finger. He states that he believes his last tetanus was over 10 years ago. <Nano Poole APRN - Last Filed: 01/11/25 09:20> Related Data Allergies/Adverse Reactions: Allergies Allergy/AdvReac Type Severity Reaction Status Date / Time Sulfa (Sulfonamide Allergy Unknown Hives Verified 01/11/25 09:07 Antibiotics) esomeprazole AdvReac Unknown DIARRHEA/GI Verified 01/11/25 09:07 UPSET <Nano Poole APRN - Last Filed: 01/11/25 09:20> Review of Systems Review of Systems: CONSTITUTIONAL: Denies body aches, fever, chills EYES: Denies visual changes ENT: Denies rhinorrhea, congestion CARDIOVASCULAR: Denies chest pain, palpitations, or edema. RESPIRATORY: Denies cough or dyspnea. SKIN: Denies rash, itching, or wounds. MUSCULOSKELETAL: Reports pain to left 5th finger. NEUROLOGIC: Denies headache, numbness, tingling, or weakness. <Nano Poole APRN - Last Filed: 01/11/25 09:20> All systems reviewed & are unremarkable except as noted in HPI and below <Nano Poole APRN - Last Filed: 01/11/25 09:20> [facility] Past Medical History Medical History: Medical History Migraine Radial tunnel syndrome of left upper extremity Tendinitis of right foot Lateral epicondylitis of left elbow Carpal tunnel syndrome, left Cubital tunnel syndrome on left Overweight (BMI 25.0-29.9) ADAM (obstructive sleep apnea) Cubital tunnel syndrome on right Ulnar nerve injury Seasonal allergies Cellulitis of right elbow Olecranon bursitis of right elbow Gastroesophageal reflux disease Screening for depression Herpes zoster without complication Irritability and anger <Nano Poole APRN - Last Filed: 01/11/25 09:20> Surgical History Surgical History: Surgical History History of appendectomy 1989 Status post emergency tracheotomy for assistance in breathing 1991 <Nano Poole APRN - Last Filed: 01/11/25 09:20> Family History Family History: Family History Father Spinal injury Mother Family history of diabetes mellitus in first degree relative Family history of coronary artery disease Arthritis Hypertension <Nano Poole APRN - Last Filed: 01/11/25 09:20> Social History Social History: Social History Social History: Caffeine-tea/coffee/soda occasionally Smoking status: Never smoker Alcohol intake: current Drinks per week: 7 Alcohol use details: couple drinks a month Substance use: current Substance use type: marijuana Other substance usage details: medical card for migraines, uses at prn Last use: 05/05/21 Lack of Transportation: No Lack of Food: Never True Current Housing: I Have Housing Concerned About Future Housing: No Difficulty Paying Gas/Electric Bills: No Difficulty Paying for Meds: No Currently Unemployed: No Education: Trade/Vocational Certificate Difficulty w/ Childcare or Family Care: No Living arrangements: with friend(s) Additional living arrangements comments: Girlfriend Occupation/Education: occupation 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 Please see nursing chart for further information. There is no relevant family history pertinent to the presenting complaint. <Nano Poole, TRANSPORTATION PROJECT MANAGER - Last Filed: 01/11/25 09:20> Exam Narrative: MUSCULOSKELETAL EXAM GENERAL: Well-appearing, well-nourished, and in no acute distress. HEAD: Normocephalic, atraumatic. NECK: Supple. CHEST: Speaks in full sentences. No respiratory distress. HEART: Regular rate and rhythm. Normal and equal peripheral pulses. EXTREMITIES: Left fifth finger has normal strength and sensation, decreased range of motion with flexion/extension due to pain. sub cm abrasion noted at PIP on palmar aspect. No edema or ecchymosis, No point tenderness. No obvious deformity; alignment normal, pulse palpable and equal bilaterally, skin warm, dry, pink. Capillary refill less than 3 seconds. Distal sensation intact. SKIN: Warm, dry, no rash. NEURO: Alert and oriented x3. PSYCH: Normal mood and affect <Nano Poole, TRANSPORTATION PROJECT MANAGER - Last Filed: 01/11/25 09:20> MUSCULOSKELETAL EXAM GENERAL: Well-appearing, well-nourished, and in no acute distress. HEAD: Normocephalic, atraumatic. NECK: Supple. CHEST: Speaks in full sentences. No respiratory distress. HEART: Regular rate and rhythm. Normal and equal peripheral pulses. EXTREMITIES: Left fifth finger has normal strength and sensation, decreased range of motion with flexion/extension due to pain. Subcentimeter abrasion noted at PIP on palmar aspect. No edema or ecchymosis, No point tenderness. No obvious deformity; alignment normal, radial pulse palpable and equal bilaterally, skin warm, dry, pink. Capillary refill less than 3 seconds. Distal sensation intact. SKIN: Warm, dry, no rash. NEURO: Alert and oriented x3. PSYCH: Normal mood and affect <AMANDEEP Rangel BC - Last Filed: 01/11/25 10:42> Course Course Emergency Course: 0945- Care assumed from Eddi Poole. Awaiting xray results. <AMANDEEP Rangel BC - Last Filed: 01/11/25 10:42> Level of Care: Express Care Visit <Nano Poole, TRANSPORTATION PROJECT MANAGER - Last Filed: 01/11/25 09:20> Vital Signs Vital signs: Vital Signs Temperature 97.3 F L 01/11/25 09:08 Pulse Rate 95 01/11/25 09:08 Respiratory Rate 18 01/11/25 09:08 Blood Pressure 131/88 01/11/25 09:08 Pulse Oximetry 97 01/11/25 09:08 Oxygen Delivery Room Air 01/11/25 09:08 Temperature 97.3 F L 01/11/25 09:08 Pulse Rate 95 01/11/25 09:08 Respiratory Rate 18 01/11/25 09:08 Blood Pressure 131/88 01/11/25 09:08 Pulse Oximetry 97 01/11/25 09:08 Oxygen Delivery Room Air 01/11/25 09:08 <Nano Poole, TRANSPORTATION PROJECT MANAGER - Last Filed: 01/11/25 09:20> Vital Signs Temperature 97.3 F L 01/11/25 09:08 Pulse Rate 95 01/11/25 09:08 Respiratory Rate 18 01/11/25 09:08 Blood Pressure 131/88 01/11/25 09:08 Pulse Oximetry 97 01/11/25 09:08 Oxygen Delivery Room Air 01/11/25 09:08 Temperature 97.3 F L 01/11/25 09:08 Pulse Rate 95 01/11/25 09:08 Respiratory Rate 18 01/11/25 09:08 Blood Pressure 131/88 01/11/25 09:08 Pulse Oximetry 97 01/11/25 09:08 Oxygen Delivery Room Air 01/11/25 09:08 <AMANDEEP Rangel BC - Last Filed: 01/11/25 10:42> MDM - Extremity Injury (Upper) MDM Narrative Medical decision making narrative: Discussed physical exam findings and xray. Advised supportive measures and signs/symptoms to go to the ER. Pt is appropriate for outpatient treatment and follow up. <Nano Poole APRN - Last Filed: 01/11/25 09:20> X-ray negative. Metal finger splint applied for immobilization to help with pain. Recommend OTC pain meds if needed. Follow-up with PCP or orthopedics if symptoms persist after 7-10 days. <AMANDEEP Rangel BC - Last Filed: 01/11/25 10:42> Differential Diagnosis Differential diagnosis: Likely finger sprain and other (Finger fracture) <AMANDEEP Rangel BC - Last Filed: 01/11/25 10:42> Imaging Data Radiologist's impression: ITS Impressions Hand X-Ray 01/11/25 10:32 IMPRESSION: 1. Normal left hand radiographs. <AMANDEEP Rangel BC - Last Filed: 01/11/25 10:42> Critical Care Time Critical Care Time Critical Care Time: No <Nano Poole APRN - Last Filed: 01/11/25 09:20> Discharge Plan Discharge Clinical Impression: Finger sprain Qualifiers: Encounter type: initial encounter Finger: little finger Sprain of finger site: unspecified site Laterality: left Qualified Code(s): S63.617A - Unspecified sprain of left little finger, initial encounter <Nano Poole APRN - Last Filed: 01/11/25 09:20> Patient Disposition: Home <Nano Poole APRN - Last Filed: 01/11/25 09:20> Condition: Stable <Nano Poole APRN - Last Filed: 01/11/25 09:20> Instructions: Finger Sprain (ED) <Nano Poole APRN - Last Filed: 01/11/25 09:20> Additional Instructions: Your x-ray is negative for fracture. Wear the splint for comfort and stability. Elevate and ice the finger. Take uusc-uao-fhccpyo medications such as Tylenol or ibuprofen for pain. Follow-up with your PCP or orthopedics in 7- 10 days if symptoms are not improving. Your blood pressure was elevated above 120/80 today at Urgent Care. This puts you above the threshold for follow up. Please schedule a followup visit with your personal physician as soon as possible, for further evaluation and treatment. Even blood pressure exceeding 120/80 may indicate pre-hypertension. <Nano Poole APRN - Last Filed: 01/11/25 09:20> Patient Language: Swedish <Nano Poole APRN - Last Filed: 01/11/25 09:20> Prescriptions: No Action ondansetron 4 mg tablet,disintegrating 4 mg PO Q8H Qty: 14 1RF diclofenac potassium 50 mg tablet 50 mg PO BID PRN (Reason: Migraine Headache) Qty: 90 1RF omeprazole 20 mg capsule,delayed release(DR/EC) 20 mg PO DAILY Qty: 90 1RF trazodone 50 mg tablet See Rx Instructions .ROUTE .COMPLEX Qty: 90 0RF Dose Instruction: TAKE 1 TABLET BY MOUTH EVERY DAY AT BEDTIME NEEDED FOR INSOMNIA Rx Instructions: TAKE 1 TABLET BY MOUTH EVERY DAY AT BEDTIME NEEDED FOR INSOMNIA <Nano Poole APRN - Last Filed: 01/11/25 09:20> Follow-up/Referrals: Shanon Kaminski NP [Primary Care Provider] - Fabricio Maza MD [Physician] - <Nano Poole APRN - Last Filed: 01/11/25 09:20> Time of Disposition: 10:41 <Nano Poole APRN - Last Filed: 01/11/25 09:20> 10:41 <AMANDEEP Rangel, - Last Filed: 01/11/25 10:42>
[2025-01-11 09:08] VITALS: BP 131/88; PULSE 95; RESP 18; TEMP 36.3; O2SAT 97
[2025-01-11] MEDS: TETANUS,DIPHTHERIA,AC PERTUSSIS ADULT (0.5 ML) BOOSTRIX IM (09:34)
== END 2025-01-11 10:45 | disposition home or self-care (01) ==
PROVIDERS: Emergency Provider Nurse Practitioner; PCP Nurse Practitioner Family
DX: S63.617A Unspecified sprain of left little finger, initial encounter (principal); W31.9XXA Contact with unspecified machinery, initial encounter; Y99.0 Civilian activity done for income or pay; Z23 Encounter for immunization; K21.9 Gastro-esophageal reflux disease without esophagitis
CPT/HCPCS: 29130; 73130; 90471; 90715; 99213; G0463

== ENCOUNTER 2025-06-22 15:13 | Emergency (ER) | payer OTHER, SELFPAY ==
[2025-06-22 15:15] VITALS: BP 130/99; PULSE 95; RESP 16; TEMP 36.9; O2SAT 98
--- NOTE | 2025-06-22 15:45 | ED_ITS ---
HPI - Wound/Laceration General Chief Complaint: Wound/Laceration Stated Complaint: Cut Head Time Seen by Provider: 06/22/25 15:15 Source: patient Mode of arrival: ambulatory Limitations: no limitations History of Present Illness HPI narrative: Patient is a 49-year-old male that presents with laceration on forehead after being hit with a 2 x 4 at work. Patient denies any loss of consciousness. Area is tender to touch and he does have a headache. Tetanus shot is up-to-date Related Data Allergies Allergy/AdvReac Type Severity Reaction Status Date / Time Sulfa (Sulfonamide Allergy Unknown Hives Verified 06/22/25 15:23 Antibiotics) esomeprazole AdvReac Unknown DIARRHEA/GI Verified 06/22/25 15:23 UPSET Review of Systems 2 Review of Systems: All systems reviewed & are unremarkable except as noted in HPI and below Constitutional: Constitutional: Denies body ache(s), Denies chills, Denies fatigue, Denies fever(s), Denies headache(s), Denies malaise and Denies weakness Eyes: Eyes: Denies blurry vision, Denies irritation and Denies loss of vision ENT: Denies otalgia, Denies headache(s), Denies nasal discharge, Denies sinus pain and Denies sore throat Cardiovascular: Cardiovascular: Denies chest pain, Denies irregular heart rhythm and Denies dyspnea Respiratory: Respiratory: Denies dyspnea Gastrointestinal: Gastrointestinal: Denies abdominal pain, Denies melena, Denies hematochezia, Denies diarrhea, Denies nausea and Denies vomiting Musculoskeletal: Musculoskeletal: Denies back pain, Denies myalgias and Denies arthralgias Integumentary/Breasts: Skin/Breast: Denies pruritus, Denies rash and Reports wounds Neurologic: Denies headache(s), Denies loss of vision and Denies weakness Psychiatric: Psychiatric: Reports no additional psychiatric complaints Endocrine: Endocrine: Denies fatigue PMFSH Past Medical History Medical History Migraine Radial tunnel syndrome of left upper extremity Tendinitis of right foot Lateral epicondylitis of left elbow Carpal tunnel syndrome, left Cubital tunnel syndrome on left Overweight (BMI 25.0-29.9) ADAM (obstructive sleep apnea) Cubital tunnel syndrome on right Ulnar nerve injury Seasonal allergies Cellulitis of right elbow Olecranon bursitis of right elbow Gastroesophageal reflux disease Screening for depression Herpes zoster without complication Irritability and anger Surgical History Surgical History History of appendectomy 1989 Status post emergency tracheotomy for assistance in breathing 1991 Family History Family History Father Spinal injury Mother Family history of diabetes mellitus in first degree relative Family history of coronary artery disease Arthritis Hypertension Social History Social History Social History: Caffeine-tea/coffee/soda occasionally Smoking status: Never smoker Alcohol intake: current Drinks per week: 7 Alcohol use details: couple drinks a month Substance use: current Substance use type: marijuana Other substance usage details: medical card for migraines, uses at [facility] prn Last use: 05/05/21 Lack of Transportation: No Lack of Food: Never True Current Housing: I Have Housing Concerned About Future Housing: No Difficulty Paying Gas/Electric Bills: No Difficulty Paying for Meds: No Currently Unemployed: No Education: Trade/Vocational Certificate Difficulty w/ Childcare or Family Care: No Living arrangements: with friend(s) Additional living arrangements comments: Girlfriend Occupation/Education: occupation 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 There is no relevant family history pertinent to the presenting complaint. Exam 2 Const: General: cooperative, healthy appearing, comfortable, no acute distress and well nourished Nutritional Appearance: well nourished O rientation/consciousness: patient oriented x3 Limitations: no limitations HENMT: Head: normal to inspection, normocephalic and atraumatic Head images: 1. 1 cm superficial laceration Ears: hearing grossly normal bilaterally and external ears normal F dillan/Nose/Sinus: Normal external nose present, normal facial exam and face symmetric Face and sinus: normal facial exam and face symmetric Mouth: Yes lip normal Eyes: General: appearance normal, both eyes and all related structures A lignment and Position: alignment normal and position normal Periorbital: p eriorbital findings normal Eyelids: eyelids normal Pupils: Equal, round and reactive pupils present EOM: EOMs intact bilaterally Neck: Neck: normal visual inspection, full ROM and supple Chest: Chest palpation & inspection: normal inspection of the chest Resp: Effort & Inspection: normal respiratory effort and able to speak in complete sentences Auscultation: clear to auscultation bilaterally Cardio: Rate: regular rate Rhythm: regular rhythm Heart sounds: S1 normal heart sound present and S2 normal heart sound present GI: Inspection: normal to inspection Skin: General skin exam: normal color and no rashes or lesions noted T rauma: laceration forehead linear, superficial, motor nerve function intact and sensation intact; not actively bleeding, does not involve subcutaneous tissue and does not involve muscle tissue Neuro: General: patient oriented x3 and moves all extremities Cranial nerves: Yes Equal, round and reactive pupils present Speech: normal speech Gait exam (Neuro): Normal gait present Extrem: General: normal to inspection, full ROM and no edema Psych: Appearance: grossly normal and well kempt Mental Status: mental status grossly normal Speech and movement: Normal speech and movement present Affect: normal affect Attitude: cooperative Thought process: Normal thought process present Course Course Emergency Course: Patient is aware of diagnosis, understands and agrees to treatment plan. Anticipatory guidance given. Patient agrees to follow-up as directed and is aware of reasons to seek care at the emergency department. Portions of this record may have been created with voice recognition software Level of Care: Express Care Visit Vital Signs Vital signs: Vital Signs Temperature 36.9 C 06/22/25 15:15 Pulse Rate 95 06/22/25 15:15 Respiratory Rate 16 06/22/25 15:15 Blood Pressure 130/99 H 06/22/25 15:15 Pulse Oximetry 98 06/22/25 15:15 Oxygen Delivery Room Air 06/22/25 15:15 Temperature 36.9 C 06/22/25 15:15 Pulse Rate 95 06/22/25 15:15 Respiratory Rate 16 06/22/25 15:15 Blood Pressure 130/99 H 06/22/25 15:15 Pulse Oximetry 98 06/22/25 15:15 Oxygen Delivery Room Air 06/22/25 15:15 Procedures Laceration Laceration 1: Date: 06/22/25 Time: 15:30 Site: face Side (If applicable): right Size (cm): 1 Description: linear Depth: simple, single layer Pre-repair: irrigated extensively ====== Skin Level ====== Skin layer closed with: dermabond and steri strips ====== Subcutaneous Layer ====== ====== Muscle Layer ====== ====== Tendon Layer ====== Dressing: procedure explained to patient. Verbal consent obtained. Was irrigated extensively. Wound is superficial and closed completely with Dermabond and Steri-Strips [facility] Narrative Medical decision making narrative: superficial laceration closed. Based on symptoms and injury care patient may have concussion. return to ER precautions given. tetanus shot was up-to-date Pt well hydrated appearing, in no respiratory distress, hemodynamically stable. Recommend supportive care. The patient is stable at time of discharge the clinical impression was discussed and the patient was given the opportunity to ask questions, which were addressed as completely as possible given the information available at present. Anticipatory guidance and return to care precautions were discussed and the importance of primary care follow-up was stressed and encouraged. The patient voiced understanding of the plan, indications to return, and the need for follow-up. Exam findings show no acute concerns or changes Patient is appropriate for outpatient treatment and follow-up. Differential Diagnosis Differential Diagnosis: Differential diagnostic considerations for wound laceration include laceration, concussion Medical Records I have reviewed the following patient records and this information was taken into consideration when formulating the assessment and plan.: previous clinic visits Discharge Plan Discharge Clinical Impression: Laceration Concussion Qualifiers: Encounter type: initial encounter Loss of consciousness presence/duration: w [facility] Qualified Code(s): S06.0X0A - Concussion without loss of consciousness, initial encounter Patient Disposition: Home Condition: Stable Instructions: Laceration (ED), Skin Adhesive Care (ED) Additional Instructions: Skin adhesive care: -adhesive works like a bandage; do not use antibiotic onitment as it can break down the adhesive -You can shower while the adhesive is on your skin, but do not take a bath or soak or scrub the area for 7-10 days. Dry your skin by patting it gently with a towel. -The adhesive will peel off on its own; usually by 5-10days. If after 10 days, you still have adhesive on you, you can use antibiotic ointment or petroleum jelly to get it off. After you heal, you should protect the scar from the sun. Use sunscreen on the area or wear clothes or a hat that covers the scar. Follow up with your PCP is needed L Based on the events which brought you to the ER today, it is possible that you may have a concussion. A concussion occurs when there is a blow to the head or body, with enough force to shake the brain and disrupt how the brain functions. You may experience symptoms such as headaches, sensitivity to light/noise, dizziness, cognitive slowing, difficulty concentrating / remembering, trouble sleeping and drowsiness. These symptoms may last anywhere from hours/days to potentially weeks/months. While these symptoms are very frustrating and perhaps debilitating, it is important that you remember that they will improve over time. Everyone has a different rate of recovery; it is difficult to predict when your symptoms will resolve. In order to allow for your brain to heal after the injury, we recommend that you see your primary physician or a physician knowledgeable in concussion management. We will give you a list of neurologists, they are the specialists for head injuries. We also advise you to let your body and brain rest: avoid physical activities (sports, gym, and exercise) and reduce cognitive demands (reading, texting, TV watching, computer use, video games, etc). School attendance, after-school activities and work may need to be modified to avoid increasing symptoms. We recommend against driving until until all symptoms have resolved. You should take 650mg of Acetaminophen (Tylenol) every 4 hours as needed for pain control; however, taking anti-inflammatory medication (Motrin/Advil/Ibuprofen) is not advised. Come back to the ER right away if you are having repeated episodes of vomiting, severe/worsening headache/dizziness or any other symptom that alarms you. We recommended that someone stay with you for the next 24 hours to monitor for these worrisome symptoms. Patient Language: Yi Prescriptions: No Action ondansetron 4 mg tablet,disintegrating 4 mg PO Q8H Qty: 14 1RF diclofenac potassium 50 mg tablet 50 mg PO BID PRN (Reason: Migraine Headache) Qty: 90 1RF omeprazole 20 mg capsule,delayed release(DR/EC) 20 mg PO DAILY Qty: 90 1RF trazodone 50 mg tablet 50 mg PO QHS PRN (Reason: insomnia) Qty: 30 0RF Rx Instructions: NEEDS APPOINTMENT FOR FURTHER REFILLS Follow-up/Referrals: Shanon Kaminski APRN [Primary Care Provider, Family Practice] - 3 Days Time of Disposition: 15:47
== END 2025-06-22 15:50 | disposition home or self-care (01) ==
PROVIDERS: Emergency Provider Nurse Practitioner Family; PCP Nurse Practitioner Family
DX: S01.81XA Laceration without foreign body of other part of head, initial encounter (principal); W22.8XXA Striking against or struck by other objects, initial encounter; Y99.0 Civilian activity done for income or pay; S06.0X0A Concussion without loss of consciousness, initial encounter; K21.9 Gastro-esophageal reflux disease without esophagitis
CPT/HCPCS: 12011; 99212; G0463